=== PATIENT | female | born 1965 | race Caucasian/White ===

== ENCOUNTER 2019-06-08 13:27 | Outpatient (CLI) | payer MEDICARE, SELFPAY ==
--- NOTE | ~2019-06-08 | US_ITS ---
EXAMINATION: US pelvic complete w TV EXAM DATE: 06/08/2019 14:27 INDICATION: Postmenopausal bleeding. TECHNIQUE: Pelvic transabdominal and transvaginal sonogram was performed. There are multiple graysca le and Doppler images available for interpretation. Comparison is made to prior examination from 04/14. FINDINGS: Uterus measures 7.9 x 5.6 x 8.0 cm, with fibroid(s). 2 focal fibroids were specifically id entified at 5.0 x 4.1 x 4.0 cm and 3.0 x 2.9 x 2.6 cm. Endometrial stripe measures 3 mm, within katlyn l limits. There is no free pelvic fluid. Right adnexa: The ovary is not identified. There is no adnexal mass. Left adnexa: The ovary is not identified. There is no adnexal mass. IMPRESSION: 1. At least 2 sizable fibroids. Reviewed, dictated and finalized at location B. WRITER
== END 2019-06-08 13:28 | disposition home or self-care (01) ==
PROVIDERS: PCP Family Medicine; Visit Provider Nurse Practitioner
DX: N95.0 Postmenopausal bleeding (principal); D25.9 Leiomyoma of uterus, unspecified
CPT/HCPCS: 76830; 76856

== ENCOUNTER 2020-01-26 00:42 | Outpatient (CLI) | payer MEDICARE, SELFPAY ==
[2020-01-26 18:37] LABS: SARS-CoV-2 RNA PCR Negative
== END 2020-01-26 00:43 | disposition home or self-care (01) ==
LOC: ANHCOVIDDT 00:42
PROVIDERS: PCP Family Medicine; Visit Provider Internal Medicine Gastroenterology
DX: Z01.812 Encounter for preprocedural laboratory examination (principal); Z20.828 Contact with and (suspected) exposure to other viral communicable diseases
CPT/HCPCS: 87635; C9803; U0003

== ENCOUNTER 2020-01-29 01:07 | Day surgery (SDC) | payer MEDICARE, SELFPAY ==
[2020-01-22 09:04] VITALS: BMI 29.2
[2020-01-29 06:49] VITALS: BP 113/74; PULSE 85; RESP 18; TEMP 36.8; O2SAT 97; BMI 29.5
[2020-01-29] MEDS: LACTATED RINGERS 1,000 ML 150 ML IV CONT (07:08)
--- NOTE | 2020-01-29 07:28 | WPDANESEPPF ---
Anes - Initial Pre Proc Eval Procedure: Operation Date: 01/29/20 08:00 Proposed Procedures p Esophagogastroduodenoscopy - Ace Mata MD Date/Time: 01/29/20 07:28 Surgeon: Ace Mata MD Pre Op Diagnosis: Nausea Patient Data Age: 54 Gender: F Height: 5 ft 3 in Weight: 75.6 kg Last Vital Signs Temp 98.2 F 01/29/20 06:49 Pulse 85 01/29/20 06:49 Resp 18 01/29/20 06:49 BP 113/74 01/29/20 06:49 Pulse Ox 97 01/29/20 06:49 Allergies Allergy/AdvReac Type Severity Reaction Status Date / Time buspirone Allergy Intermediate ANXIETY, Verified 01/29/20 06:47 HEAD CRAWLING,ACID REFLUX cefuroxime Allergy Intermediate NAUSEA,DIZZ Verified 01/29/20 06:47 INESS,TINGL ING hydrocodone Allergy Intermediate HEART Verified 01/29/20 06:47 PALPATATIONS,DIZZINESS,NAUSEA,HALLUCINATIONS meloxicam Allergy Intermediate SEVERE Verified 01/29/20 06:47 MIGRAINE,VOMITTING baclofen Allergy Mild MADE ACID Verified 01/29/20 06:47 REFLUX WORSE Cephalosporins Allergy Mild Unknown Verified 01/29/20 06:47 escitalopram Allergy Mild TREMORS Verified 01/29/20 06:47 AND INSOMIA nortriptyline Allergy Mild CAUSED Verified 01/29/20 06:47 SEVERE ACID REFLUX, CAN'T FUNCTION rabeprazole Allergy Mild Other Verified 01/29/20 06:47 tetracycline Allergy Mild MIGRAINE Verified 01/29/20 06:47 topiramate Allergy Mild HEART Verified 01/29/20 06:47 PALPATATIONS, ANXIETY tramadol Allergy Mild HEADACHE,NAUSEA,DRY Verified 01/29/20 06:47 MOUTH venlafaxine Allergy Mild Unknown Verified 01/29/20 06:47 modafinil Allergy Unknown ANXIETY,SCALP Verified 01/29/20 06:47 CRAWLING nitrofurantoin Allergy Unknown SEVERE Verified 01/29/20 06:47 HEADACHE, NAUSEA BUPROPION HCL Allergy Intermediate HEART Uncoded 01/29/20 06:47 PALPATAIONS,MIGRAINES,TINNITIS CYMBALTA Allergy Intermediate DRY Uncoded 01/29/20 06:47 HEAVES,DIZZINESS,CHEST APINS LYRICA Allergy Intermediate LOWERS Uncoded 01/29/20 06:47 BLOOD PLATELETS DARVOCET Allergy Unknown NAUSEA AND Uncoded 01/29/20 06:47 SEVERE HEADACHE RABEPRAZOLE SODIUM Allergy Unknown DOES NOT Uncoded 01/29/20 06:47 HELP ACID REFLUX SYMPTOMS VENLAFAXINE HCL Allergy Unknown SEVERE Uncoded 01/29/20 06:47 ANXIETY Home Medications Medication Instructions Recorded Confirmed Type esomeprazole magnesium 40 mg 40 mg PO DAILY #90 cap 08/27/19 01/29/20 Rx capsule,delayed release gabapentin 600 mg tablet 600 mg PO TID 11/29/19 01/22/20 History meclizine 25 mg tablet 25 mg PO BID PRN #30 tablet 11/29/19 01/29/20 Rx tizanidine 2 mg capsule 2 mg PO TID PRN 11/29/19 01/22/20 History Patient hx anesthesia problems: none Family hx anesthesia problems: none PMFSH Past Medical History Medical History (Updated 01/29/20 @ 07:29 by Rupesh Cuello MD) Colon, diverticulosis GERD (gastroesophageal reflux disease) Multiple sclerosis relapsing; takes meds at present time Nausea Upper abdominal pain Social History Social History Smoking status: Never smoker Alcohol intake: current Living arrangements: with family Gladis Akbar Final PreProcedure Day of Procedure 01/29/20 07:28 Patient weight: normal Heart: regular rate and rhythm Lungs: clear to auscultation Airway: Mallampati scale class II Neurological: alert and oriented Last oral intake: >/= 8 hours ASA classification: II Emergent: no Anesthetic plan: proceed Anesthesia type and monitoring: general GIVS and standard monitoring Informed Consent: The patient's anesthetic plan and its attendant risks and benefits were discussed with the patient/family/POA. Questions were solicited and answers provided to the satisfaction of the patient/family/POA.
--- NOTE | 2020-01-29 07:56 | PM.HPGS ---
History of Present Illness History of Present Illness Consent: Risks, benefits, and alternatives have been discussed and questions answered. Patient agrees to proceed with procedure. Chief complaint: Nausea Narrative: Trinity Treviño is a 54 year old female with intermittent nausea and discomfort, on nexium for several years. Review of Systems Constitutional: Constitutional: Denies headache(s) and Denies weakness Eyes: Eyes: Denies blurry vision ENT: Reports Normal hearing present, Denies headache(s) and Denies neck pain Cardiovascular: Cardiovascular: Denies chest pain and Denies dyspnea Respiratory: Respiratory: Denies dyspnea Gastrointestinal: Gastrointestinal: Reports no additional gastrointestinal complaints Genitourinary: Genitourinary: Denies dysuria Musculoskeletal: Musculoskeletal: Denies neck pain Integumentary/Breasts: Skin/Breast: Denies dry skin Neurologic: Reports Normal hearing present, Denies headache(s) and Denies weakness Psychiatric: Psychiatric: Denies anxiety Endocrine: Endocrine: Denies change in body appearance Hematologic/Lymphatic: Hematologic/Lymphatic: Denies easy bleeding Allergic/Immunologic: Allergic/Immunologic: Denies urticaria PMFSH Past Medical History Medical History (Updated 01/29/20 @ 07:29 by Rupesh Cuello MD) Colon, diverticulosis GERD (gastroesophageal reflux disease) Multiple sclerosis relapsing; takes meds at present time Nausea Upper abdominal pain Social History Social History Smoking status: Never smoker Alcohol intake: current Living arrangements: with family Meds Home Medications and Allergies Home Medications Medication Instructions Recorded Confirmed Type esomeprazole magnesium 40 mg 40 mg PO DAILY #90 cap 08/27/19 01/29/20 Rx capsule,delayed release gabapentin 600 mg tablet 600 mg PO TID 11/29/19 01/22/20 History meclizine 25 mg tablet 25 mg PO BID PRN #30 tablet 11/29/19 01/29/20 Rx tizanidine 2 mg capsule 2 mg PO TID PRN 11/29/19 01/22/20 History Allergies Allergy/AdvReac Type Severity Reaction Status Date / Time buspirone Allergy Intermediate ANXIETY, Verified 01/29/20 06:47 HEAD CRAWLING,ACID REFLUX cefuroxime Allergy Intermediate NAUSEA,DIZZ Verified 01/29/20 06:47 INESS,TINGL ING hydrocodone Allergy Intermediate HEART Verified 01/29/20 06:47 PALPATATIONS,DIZZINESS,NAUSEA,HALLUCINATIONS meloxicam Allergy Intermediate SEVERE Verified 01/29/20 06:47 MIGRAINE,VOMITTING baclofen Allergy Mild MADE ACID Verified 01/29/20 06:47 REFLUX WORSE Cephalosporins Allergy Mild Unknown Verified 01/29/20 06:47 escitalopram Allergy Mild TREMORS Verified 01/29/20 06:47 AND INSOMIA nortriptyline Allergy Mild CAUSED Verified 01/29/20 06:47 SEVERE ACID REFLUX, CAN'T FUNCTION rabeprazole Allergy Mild Other Verified 01/29/20 06:47 tetracycline Allergy Mild MIGRAINE Verified 01/29/20 06:47 topiramate Allergy Mild HEART Verified 01/29/20 06:47 PALPATATIONS, ANXIETY tramadol Allergy Mild HEADACHE,NAUSEA,DRY Verified 01/29/20 06:47 MOUTH venlafaxine Allergy Mild Unknown Verified 01/29/20 06:47 modafinil Allergy Unknown ANXIETY,SCALP Verified 01/29/20 06:47 CRAWLING nitrofurantoin Allergy Unknown SEVERE Verified 01/29/20 06:47 HEADACHE, NAUSEA BUPROPION HCL Allergy Intermediate HEART Uncoded 01/29/20 06:47 PALPATAIONS,MIGRAINES,TINNITIS CYMBALTA Allergy Intermediate DRY Uncoded 01/29/20 06:47 HEAVES,DIZZINESS,CHEST APINS LYRICA Allergy Intermediate LOWERS Uncoded 01/29/20 06:47 BLOOD PLATELETS DARVOCET Allergy Unknown NAUSEA AND Uncoded 01/29/20 06:47 SEVERE HEADACHE RABEPRAZOLE SODIUM Allergy Unknown DOES NOT Uncoded 01/29/20 06:47 HELP ACID REFLUX SYMPTOMS VENLAFAXINE HCL Allergy Unknown SEVERE Uncoded 01/29/20 06:47 ANXIETY
[2020-01-29 08:10] VITALS: BP 113/55; PULSE 78; RESP 15; O2SAT 97
[2020-01-29 08:20] VITALS: BP 106/68; PULSE 69; RESP 16; O2SAT 98
[2020-01-29 08:30] VITALS: BP 119/61; PULSE 62; RESP 19; O2SAT 98
== END 2020-01-29 08:57 | disposition home or self-care (01) ==
PROVIDERS: PCP Family Medicine; Visit Provider Internal Medicine Gastroenterology
PROC: 0DJ08ZZ Inspection of Upper Intestinal Tract, Via Natural or Artificial Opening Endoscopic (ICD-10-PCS; CPT 43235; principal; 2020-01-29 08:00)
DX: K29.50 Unspecified chronic gastritis without bleeding (principal); K44.9 Diaphragmatic hernia without obstruction or gangrene; K21.9 Gastro-esophageal reflux disease without esophagitis; G35 Multiple sclerosis
CPT/HCPCS: 43239; 88305; J2704; J7120

== ENCOUNTER 2020-09-24 08:30 | Outpatient (RCR) | payer MEDICARE, SELFPAY ==
--- NOTE | 2020-08-22 09:49 | PTOPEVAL ---
PHYSICAL THERAPY EVALUATION Thank you for referring Trinity Treviño to [facility].? Trinity was evaluated for the dx of right frozen shoulder. The patient is scheduled to be seen for therapy? 2 x/week for 5 weeks. Please review, sign, date and return this plan of care JAMIE. I agree with and certify that the following plan of care is medically necessary. Referring Physician Date Attending Provider: Jayant Bearden MD *PT Outpatient Evaluation Start: 08/22/20 08:17 Freq: Status: Active Protocol: Document 08/22/20 08:17 MLV (Rec: 08/22/20 09:36 MLV [id number]) Therapy Assessment Status Assessment Status Evaluation Evaluation Information Problem Diagnosis right frozen shoulder Onset summer Cause none Additional Evaluation Detail Started having soreness last summer, working in the yard a lot, then used the computer a lot in the fall and the shoulder got worse. Pt did not see MD until recently due to COVID fear- pt has MS and can't have vaccine yet-fears getting ill. Pt does not work- on disability due to the MS. The patient does her housework, cooking, yardwork and walks for exercise. Pt does not go out unless needed. The patient reports a decrease in ability to reach, do ADL's, work in her yard and must compensate movement due to right shoulder and scapular tightness/pain. The patient also reports not sleeping well due to shoulder pain. Diagnostic Tests X-Rays For This Problem Yes: structure ok at right shoulder Pain Assessment Timing of Pain Assessment Timing of Pain Assessment Assessment Pain Scale Pain Scale Used Numeric (1 - 10) Self Report Pain Assessment Right Shoulder(s) Reported Pain Level 4 Pain Description Aching Pain Radiation Right Arm Pain Frequency Acute,Chronic Greatest Pain Intensity 10 Pain Aggravating Factors Palpation Other Pain Aggravating Factors reaching, lifting, ADL's Pain Behaviors Guarding Pain Score Pain Score 4: Self Report Interventions Used Interventions Used By Clinicians
--- NOTE | 2020-09-01 09:24 | PCPTNOTE ---
Patient called & cancelled scheduled appointment this date due to not feeling well.
--- NOTE | 2020-09-24 09:27 | PTOPEVAL ---
PHYSICAL THERAPY RE-EVALUATION Thank you for referring Trinity Treviño to [facility].? Trinity continues to progress and goals are being met. The patient is scheduled to be seen for therapy?1 x/week for 4 weeks (less frequent due to cost issues). Please review, sign, date and return this plan of care JAMIE. I agree with and certify that the following plan of care is medically necessary. Referring Physician Date Attending Provider: Jayant Bearden MD *PT Outpatient Re-Evaluation Start: 08/22/20 08:17 Freq: Status: Active Protocol: Document 09/24/20 08:33 MLV (Rec: 09/24/20 09:23 MLV [id number]) Therapy Assessment Status Assessment Status Re-evaluation Evaluation Information Problem Diagnosis right frozen shoulder Onset summer Cause none Additional Evaluation Detail Pt reports improving and is sleeping better but the weather affects current comfort level which is typical for her MS symptoms. Pt feels she is about 50% better with shoulder motions for daily activities. Pt no longer has sharp pains with quick motions but feels she needs more therapy to get maximal movement at shoulder. Patient reports having increased neck tightness for last 2 weeks. Pain Assessment Timing of Pain Assessment Timing of Pain Assessment Assessment Pain Scale Pain Scale Used Numeric (1 - 10) Self Report Pain Assessment Right Neck Reported Pain Level 3 Pain Description Tightness Pain Frequency Acute Other Pain Description after exercises a 6 out of 10 Pain Aggravating Factors Exercise/Activity Pain Behaviors Guarding Right Shoulder(s) Reported Pain Level 2 Pain Description Aching Other Pain Description 4 with reach motions Pain Score Pain Score 2,3: Self Report Interventions Used Interventions Used By Clinicians Exercise,Heat,Manual Therapy Techniques Pain Relief Interventions Used By Exercise,Heat,Position Change, Patient Massage Modalities Cervical and Lumbar ROM Cervical ROM Cervical Lateral Flexion Right (0-50) 45 Query Text:Active in Degrees Cervical Lateral Flexion Left (0-50) 36 Query Text:Active in Degrees Upper Extremity Range of Motion General Upper Extremity Range of Motion Gross Upper Extremity Range of Motion left shoulder active motio
--- NOTE | 2020-10-03 10:11 | PCPTNOTE ---
Addendum entered by Carolynn Casarez, PT 10/03/20 10:43: Patient returned a call and reports cancelling appts. due to MS flare up. Plans to see her MD then decide if further therapy is needed. Will call and reschedule if indicated by MD. PT to await return call from patient for DC/continue plans. MV-PT Original Note: PHYSICAL THERAPY DISCHARGE Attending Provider: Jayant Bearden MD Patient:Trinity Treviño Date of :1965 Patient called to cancel all further therapy appts and plans to follow up with her MD; therefore she will be discharged at this time. Patient did give a reason for cancelling. Patient?s initial visit was on 08/22/2020 08:15 and she had a total of 10 visits. The goals have been partially met. Thank you for referring this patient to [facility]. Please review, sign, date and return this discharge summary JAMIE. I have been updated about the patient's current status and I agree with discharge from the above service at this time. Referring Physician Date
== END 2020-10-07 09:06 | disposition home or self-care (01) ==
LOC: ANHPT 08:30
PROVIDERS: PCP Family Medicine; Visit Provider Orthopaedic Surgery
DX: M75.00 Adhesive capsulitis of unspecified shoulder (principal)
CPT/HCPCS: 97014; 97110; 97140; 97162; G0283

== ENCOUNTER 2021-03-12 09:46 | Outpatient (CLI) | payer MEDICARE, SELFPAY ==
--- NOTE | ~2021-03-12 | MR_ITS ---
EXAMINATION: MR brain/brain stem wo/w con EXAM DATE: 03/12/2021 11:05 INDICATION: Multiple sclerosis. TECHNIQUE: Magnetic resonance imaging (MRI) of the brain/brain stem obtained without contrast. Sagit sukumar T1, axial diffusion, gradient echo (T2*), T1, T2, FLAIR sequences obtained. Patient was then inj ected with 14 cc intravenous Multihance contrast. Axial and coronal postcontrast T1 weighted sequence s obtained. Comparison is made to prior examination from 01/30/2019. FINDINGS: There are approximately 15-20 punctate periventricular T2/flair signal hyperintensity is un changed. Several these are periventricular, may involve margin of the corpus callosum. No posterior f jolene signal abnormalities or significant interval change. No enhancing regions. There are no areas of restricted diffusion to suggest acute infarction. There is no acute hemorrhage seen on the T2*, a hemosiderin sensitive sequence. No intraparenchymal brain mass. The ventricles a re normal in size. There are no extra-axial collections. Flow voids are seen in the cerebral arteri es on the T2-weighted sequences consistent with their expected patency. The orbits are unremarkable. Soft tissue is unremarkable. There are no areas of abnormal enhancement on the postcontrast image s. IMPRESSION: 1. Stable scattered small white matter signal abnormalities, possible multiple sclerosis. 2. No interval change or acute findings. Reviewed, dictated and finalized at location A.
[2021-03-12 10:45] LABS: Estimated Glomerular Filt Rate > 60
== END 2021-03-12 09:47 | disposition home or self-care (01) ==
PROVIDERS: PCP Family Medicine; Visit Provider Psychiatry & Neurology Neurology
DX: G35 Multiple sclerosis (principal)
CPT/HCPCS: 70553; A9577

== ENCOUNTER 2021-06-22 13:58 | Outpatient (CLI) | payer MEDICARE, SELFPAY ==
--- NOTE | 2021-06-22 14:23 | ECG_ITS ---
Measurements Intervals [place] Rate: 94 P: 63 SD: 168 QRS: 57 QRSD: 79 T: 37 QT: 335 QTc: 421 Interpretive Statements SINUS RHYTHM POSSIBLE LEFT ATRIAL ENLARGEMENT INCOMPLETE RIGHT BUNDLE BRANCH BLOCK MINIMAL Q WAVES- ANTEROLATERAL LEADS BORDERLINE ST-T WAVE ABNORMALITY- ANT/INF LEADS BASELINE ARTIFACT- V6 BORDERLINE ECG Electronically Signed On 06-22-2021 15:16:57 MESSENGER FLOORPERSON by Melvin Landon D.O.
== END 2021-06-22 13:59 | disposition home or self-care (01) ==
LOC: ANHIMG 14:04
PROVIDERS: PCP Family Medicine; Visit Provider Physician Assistant Medical
DX: R00.0 Tachycardia, unspecified (principal); R42 Dizziness and giddiness; R07.89 Other chest pain
CPT/HCPCS: 93005

== ENCOUNTER 2021-07-30 12:36 | Outpatient (CLI) | payer MEDICARE, SELFPAY ==
--- NOTE | ~2021-07-30 | US_ITS ---
EXAMINATION: US venous doppler [facility] DATE: 07/30/2021 13:55 INDICATION: Asymptomatic varicose veins TECHNIQUE: Sarmiento scale images without and with compression and Doppler images of the bilateral lower e xtremity veins were obtained. COMPARISON: 11/19/2014 FINDINGS: The right common femoral vein, profunda femoral vein, femoral vein, popliteal vein, peroneal trunk, p osterior tibial veins, and greater saphenous vein are patent. The left common femoral vein, profunda femoral vein, femoral vein, popliteal vein, peroneal trunk, po sterior tibial veins, and greater saphenous vein are patent. IMPRESSION: 1. Patent bilateral lower extremity veins. No evidence of deep venous thrombosis. Reviewed, dictated and finalized at location B. IMPRESSION: 1. Patent bilateral lower extremity veins. No evidence of deep venous thrombosi s.
== END 2021-07-30 12:37 | disposition home or self-care (01) ==
PROVIDERS: PCP Family Medicine; Visit Provider Physician Assistant Medical
DX: R79.89 Other specified abnormal findings of blood chemistry (principal)
CPT/HCPCS: 93970

== ENCOUNTER 2021-12-15 10:48 | Outpatient (CLI) | payer MEDICARE, SELFPAY ==
--- NOTE | ~2021-12-15 | US_ITS ---
EXAMINATION: US pelvic complete w TV DATE: 12/15/2021 11:45 INDICATION: Postmenopausal bleeding Comparison:Ultrasound dated 06/08/2019 TECHNIQUE: Multiple transabdominal and endovaginal sonographic images of the pelvis performed. FINDINGS: The uterus measures 8 x 5.4 x 6.2 cm. The endometrial complex is not well visualized. There are uterine fibroids, largest measuring 4.6 cm. The ovaries are not visualized. There is no free fluid in the pelvis. There are no abnormal masses seen on either side. IMPRESSION: 1. Uterine fibroids. Endometrium not delineated due to fibroid changes. Reviewed, dictated and finalized at location A.
== END 2021-12-15 10:49 | disposition home or self-care (01) ==
LOC: ANHIMG 10:51
PROVIDERS: PCP Family Medicine; Visit Provider Obstetrics & Gynecology Gynecology
DX: N95.0 Postmenopausal bleeding (principal); D25.9 Leiomyoma of uterus, unspecified
CPT/HCPCS: 76830; 76856

== ENCOUNTER 2022-02-19 09:01 | Outpatient (CLI) | payer MEDICARE, SELFPAY ==
--- NOTE | ~2022-02-19 | DEXA_ITS ---
Bone Density Report Name: NORTH VELEZ Age: 56 Sex: Female Ethnicity: White Date of : 1965 Indication: postmenopausal; screening for osteoporosis; height loss; inflammatory bowel disease; prior fracture; Referring Provider: RENETTA, SAMANTHA Study: Bone densitometry was performed. Exam Date: February 19, 2022 Accession number: [id number] Bone Density: Region BMD T-score Z-score Classification AP Spine(L1-L4) 0.948 -0.9 0.3 Normal Femoral Neck (Left) 0.814 -0.3 0.8 Normal Total Hip (Left) 0.984 0.3 1.1 Normal Femoral Neck (Right) 0.837 -0.1 1.0 Normal Total Hip (Right) 0.992 0.4 1.2 Normal Total Hip Mean 0.988 0.4 1.2 Normal World Health Organization criteria for BMD impression classify patients as: Normal (T-score at or above -1.0), Osteopenia (T-score between -1.0 and -2.5), or Osteoporosis (T-score at or below -2.5). 10-year Fracture Risk: FRAX not reported because: All T-scores for Spine Total, Hip Total, Femoral Neck at or above -1.0 Previous Exams: Region Exam Age BMD T-score BMD Change BMD Change Date g/cm2 vs Baseline vs Previous AP Spine (L1-L4) 02/19/2022 56 0.948 -0.9 -0.045 (-4.6%) -0.045 (-4.6%) 05/25/2018 52 0.993 -0.5 Total Hip(Left) 02/19/2022 56 0.984 0.3 -0.063 (-6.0%) -0.063 (-6.0%) 05/25/2018 52 1.047 0.9 Total Hip(Right) 02/19/2022 56 0.992 0.4 0.006 (0.6%) 0.006 (0.6%) 05/25/2018 52 0.986 0.4 *Denotes significance at 95% confidence level, LSC for AP Spine = 0.022 g/cm2, LSC for Total Hip = 0.027 g/cm2 Clinical Information Provided by Patient: Has had a low trauma fracture Has the following medical conditions: Inflammatory bowel diseases Patient maximum height was 64 Menopause Age: 50 No regular weight bearing exercise Drinks caffeinated beverages Onset of menses at age 13 Number of children 0 Missed period for more than 6 months in a row Impression: The patient has normal bone mass. The patient has risk factors, including: previous fracture. The BMD for the AP Spine (L1-L4) decreased, changing by -4.6% since the last DXA exam. The BMD for the Total Hip(Left) decreased, changing by -6.0% since the last DXA exam. Discussion: BONE DENSITY IS ABOVE THE MINIMUM DESIRABLE LEVEL AT ALL SKELETAL SITES TESTED. This patient?s bone mineral density is above the minimum desirable level (T-score -1.0 or better) at all sites measured. The patient should follow a healthful lifes
== END 2022-02-19 09:02 | disposition home or self-care (01) ==
PROVIDERS: PCP Family Medicine; Visit Provider Nurse Practitioner
DX: Z78.0 Asymptomatic menopausal state (principal); M85.851 Other specified disorders of bone density and structure, right thigh
CPT/HCPCS: 77080

== ENCOUNTER 2023-04-04 15:29 | Outpatient (CLI) | payer MEDICARE, SELFPAY ==
--- NOTE | ~2023-04-04 | MR_ITS ---
EXAMINATION: MR brain/brain stem wo/w con DATE: 04/04/2023 16:31 INDICATION: Multiple sclerosis. TECHNIQUE: Magnetic resonance imaging (MRI) of the brain and brainstem was performed without and with 14 mL MultiHance intravenous contrast. COMPARISON: Brain MRI 03/12/2021 FINDINGS: There are greater than 10 total lesions of increased T2-weighted signal intensity in the br ain. Of these lesions, approximately multiple are periventricular, multiple are juxtacortical, and no ne are infratentorial. None of the lesions enhance. There is no intracranial hemorrhage or acute isch emic infarct. The ventricles are normal symmetric. The paranasal sinuses are clear. There is normal. The mastoid air cells are normal. IMPRESSION: 1. Stable mild cerebral white matter disease, which may be chronic small vessel ischemic disease and/ or multiple sclerosis. Reviewed, dictated and finalized at location A. SERVICEMAN IMPRESSION: 1. Stable mild cerebral white matter disease, which may be chronic small vessel ischemic disease and/or multiple sclerosis.
== END 2023-04-04 15:30 | disposition home or self-care (01) ==
PROVIDERS: PCP Family Medicine; Visit Provider Psychiatry & Neurology Neurology
DX: G35 Multiple sclerosis (principal); R90.82 White matter disease, unspecified
CPT/HCPCS: 70553; A9577

== ENCOUNTER 2023-08-09 10:12 | Outpatient (CLI) | payer MEDICARE, SELFPAY ==
--- NOTE | ~2023-08-09 | XR_ITS ---
Lumbosacral Spine: AP and lateral views Clinical History: Pain Findings: The normal lordotic curve is maintained. The vertebral bodies and posterior elements are i ntact. The intervertebral disc spaces are preserved. The sacroiliac joints are normally outlined. Impression: No significant abnormality. Reviewed, dictated and finalized at [facility]. Impression: No significant abnormality.
--- NOTE | ~2023-08-09 | XR_ITS ---
Right Knee Technique: AP and lateral views were obtained. Clinical History: Pain Findings: No fracture or dislocation is seen. Osseous alignment is anatomic. Joint spaces are preserv ed without degenerative or erosive change. Soft tissues are unremarkable. No joint effusion is seen. Impression: Unremarkable right knee radiographs. Reviewed, dictated and finalized at location . Impression: Unremarkable right knee radiographs.
--- NOTE | ~2023-08-09 | XR_ITS ---
AP view of the pelvis and AP and lateral views of the right hip Clinical history: Pain Findings: No acute fracture or dislocation is seen. Osseous alignment is anatomic. Bilateral hip and SI joint spaces are preserved. Soft tissues are unremarkable. Impression: No significant abnormality is seen. Reviewed, dictated and finalized at location . Impression: No significant abnormality is seen.
== END 2023-08-09 10:13 | disposition home or self-care (01) ==
PROVIDERS: PCP Family Medicine; Visit Provider Physician Assistant Medical
DX: M25.551 Pain in right hip (principal); M25.561 Pain in right knee; M54.50 Low back pain, unspecified; G89.29 Other chronic pain
CPT/HCPCS: 72100; 73502; 73560

== ENCOUNTER 2023-10-13 13:18 | Outpatient (CLI) | payer MEDICARE, SELFPAY ==
--- NOTE | ~2023-10-13 | XR_ITS ---
Right ankle Technique: AP, oblique, and lateral views were obtained. Clinical History: Pain Findings: No acute fracture or dislocation is seen. Osseous alignment is anatomic. Ankle mortise and other visualized joint spaces demonstrate anatomic alignment. There is minimal degenerative change of the tibiotalar joint. Soft tissues are otherwise unremarkable. Impression: Minimal degenerative change of the tibiotalar joint. Reviewed, dictated and finalized at location . Impression: Minimal degenerative change of the tibiotalar joint.
== END 2023-10-13 13:19 | disposition home or self-care (01) ==
PROVIDERS: PCP Family Medicine; Visit Provider Nurse Practitioner Family
DX: M25.579 Pain in unspecified ankle and joints of unspecified foot (principal)
CPT/HCPCS: 73610

== ENCOUNTER 2023-10-26 09:00 | Outpatient (RCR) | payer MEDICARE, SELFPAY ==
--- NOTE | 2023-09-06 09:18 | OPREHPOC ---
Outpatient Therapy Plan of Care This is a Multidisciplinary Plan of Care that may contain components documented by all disciplines (PT, OT, and ST.) PT Problem 1 PT Problem #1 Knowledge Deficit PT Goal 1 Goal *indep with HEP * correct posture with exercises Target Visit 8 PT Problem 2 PT Problem #2 Pain PT Goal 1 Goal 1* pain rating at worst of 6/10 2* Oswestry self assessment rating of 20% limitation in activity 3* pt report with sleeping, awaken 3x/night due to pain 4* monitor R knee and ankle pain as increase activity level Target Visit 8 PT Problem 3 PT Problem #3 Impaired Flexibility PT Goal 1 Goal increase flexibility of hips, to improve position of spine and hips hamstring length with supine SLR 1* R 75' 2* L 75' piriformis stretch in supine report NO stretch in hip 3* R 4* L Target Visit 8 PT Problem 4 PT Problem #4 Impaired Strength PT Goal 1 Goal increase trunk and hip strength, to improve mobility skills and stability to spine: 1* hip extension strength with prone exercises x 20 reps single leg standing 10 seconds with good stability: 2* R 3* L 4* 2 minute walking test distance of 500' and NO pain increase Target Visit 8
--- NOTE | 2023-09-06 09:18 | PTOPEVAL1 ---
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; recent MRI of R knee and hip/SIJ were negative Activity: do not work outside of home;indep with light home and self care activities--have figured out how to take care of herself since MS diagnosis ; does not do any regular fitness exercises-- walking her usual fitness; have done some fitness exercises few months ago; have had MS flare ups, where she has had to be in a w/c; GOAL: figure out what is going on with the hip and knee; see if need an MRI of them or get them better; Reported Pain Level Pain Score Self Report Additional Pain Score Comments pain range in the past week 1-10/10; aches in R hip and knee; both sides of low back, into both hips R >L; anterior groin, anterior & med knee to R ankle tight and tuniquet around hip, knee and ankle; increase pain: going down stairs in R knee, end of day, when still and not move around; lie down and elevate legs; decrease pain: tylenol, ibuprofen; heating pad over back or knee R; have compression sleeve for R knee- use PRN for increased activity with sleeping, awaken due to pain ~ 6+ x/night , change positions to get comfortable; Assessment PT Clinical Summary Trinity has the diagnosis o
--- NOTE | 2023-09-29 10:47 | PCPTNOTE ---
Patient cancelled secondary to ill.
--- NOTE | 2023-10-04 13:29 | PTOPPROG ---
Assessment and note entered by Annita Ayers, PT Progress Information Assessment Status Progress Diagnosis low back pain,other chronic pain, pain R knee, pain R hip Onset Mar 2023 Subjective Information knee still popping out of place and hurts; the exercises and stretching are helping, but still have the pain in knee and back; therapy is helping, but want to see if dr will do more testing; want to continue therapy to help get better. ZAPATA: range in the past week 4-02/15- R knee, back and ankle pain; knee pops and hurts increase pain: unable to state ---walking and activity varies day/day if bothers her or not; stormy, bad weather decrease pain: change positions, walk around, stretches, sit on ball; stim and heat with sleeping, reports awaken 3-4 x/night due to pain; does not have an electrical stim unit at home, discussed obtaining one for home use; Assessment PT Clinical Summary Trinity has received 7 PT sessions. Compared to the initial evaluation: pain from -02/15 to -02/15; continues to have pain in back, R knee and R ankle; self assessment Oswestry rating from 30 to 32% limitation in activity level reported sleeping tolerance has improved from awakening 6 times to 3-4x/ night due to pain; increase hamstring flexibility of R and L; 2 minute walking testing distance from 460' to 510', with reported pain increase; with walking, no longer has a limp on R LE; education for HEP and posture; modalities have provided her with some pain relief. The goals were partially met. Continue PT. She is going to call for a follow up appointment-- -has some pain relief but continues to have pain. She may require additional testing or imaging. Plan of Care Interventions Electrical Stimulation,Hot Pack/Cold Pack,Manual Therapy,Mechanical Traction,Neuro Re-education, Patient Education,Therapeutic Activities, Therapeutic Exercise,Ultrasound,Other Other Interventions taping, IASMARIE PT Services Indicated Yes Treatment Frequency and 2x/wk for 6 more visits
--- NOTE | 2023-10-26 09:52 | PTOPDC ---
Assessment and note entered by Annita Ayers, PT Discharge Report Assessment Status Discharge Diagnosis low back pain,other chronic pain, pain R knee, pain R hip Onset Mar 2023 Subjective Information back is better, but still hurting; have figured out what causes it and what helps it; want to see dr and try to get MRI of back to see what is going on. Agree to discharge PT. Will continue to do the exercises. Reported Pain Level Pain Score Self Report Additional Pain Score Comments pain range in the past week 2-10/10; sharp pains in back, around to sides of hips R more than L - few times a week, stops me in tracks; pressure in low back and locks up back pain increase: sitting more than 30 minutes; awaken from sleeping 5x/night- few of them have to get up out of bed and walk around; weather pain decrease: tylenol, ibuprofen, change position, walk around; do not yet have a home stim unit; discussed type of unit, settings and pad placement. R knee continues to feel out of place and R ankle sometimes get sharp pains Assessment PT Clinical Summary Trinity has received 13 PT sessions. Compared to the last reevaluation: pain rating from 4-10/10 to 2-10/10, in low back and hips; also have pain in R knee and ankle--not radicular from back/ arthritis in knee and ankle; self assessment Oswestry rating from 32 to 38% limitation in activity; with sleeping awaken due to pain from 3-4 to 5x/night; increase flexibility of R hamstring and no longer painful; R piriformis is tighter than L with supine stretch; increase strength of trunk and hips, but single leg standing is the same as last assessment; indep with HEP and good awareness of pain management techniques. The goals were partially met. Discharge PT services. She is to continue with her HEP. Plan of Care PT Services Indicated No
== END 2023-10-26 10:48 | disposition home or self-care (01) ==
LOC: ANHPT 09:00
PROVIDERS: PCP Family Medicine; Visit Provider Nurse Practitioner Family
DX: M54.50 Low back pain, unspecified (principal); M25.561 Pain in right knee; M25.551 Pain in right hip; G89.29 Other chronic pain
CPT/HCPCS: 97014; 97110; 97140; 97162; 97530; G0283

== ENCOUNTER 2023-11-09 11:03 | Outpatient (CLI) | payer MEDICARE, SELFPAY ==
--- NOTE | ~2023-11-09 | XR_ITS ---
Left ankle Technique: AP and lateral views were obtained. Clinical History: Joint pain Findings: No acute fracture or dislocation is seen. Osseous alignment is anatomic. Ankle mortise and other visualized joint spaces are preserved. Soft tissues are otherwise unremarkable. Impression: Unremarkable left ankle. Reviewed, dictated and finalized at location . Impression: Unremarkable left ankle.
--- NOTE | ~2023-11-09 | XR_ITS ---
EXAMINATION: XR wrist LT 2V, XR hand LT 2V, XR hand RT 2V, XR wrist RT 2V DATE: 11/09/2023 11:42 INDICATION: Possible rheumatoid arthritis with multiple joint pain. TECHNIQUE: 1. Posteroanterior and lateral views of the left wrist were obtained. 2. Dorsal palmar and lateral views of the left hand were obtained. 3. Posteroanterior and lateral views of the right wrist were obtained. 4. Dorsal palmar and lateral views of the right hand were obtained. COMPARISON: None. FINDINGS: Alignment of the bilateral hands and wrists is normal. No fracture identified. Minimal to mild polya rticular osteoarthritis at several of the bilateral interphalangeal joints with distal predominance. No erosions to suggest an inflammatory arthritis such as rheumatoid. No focal soft tissue swelling. IMPRESSION: 1. 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 Reviewed, dictated and finalized at location B. IMPRESSION: 1. Minimal to mild polyarticular osteoarthritis at the bilateral interphalangea l joints with distal predominance. IMPRESSION: 1. Minimal to mild polyarticular osteoarthritis at the bilateral interphalangea l joints with distal predominance. IMPRESSION: 1. Minimal to mild polyarticular osteoarthritis at the bilateral interphalangea l joints with distal predominance.
--- NOTE | ~2023-11-09 | XR_ITS ---
Left foot Technique: AP and lateral views were obtained. Clinical History: Joint pain Findings: No acute fracture or dislocation is seen. Osseous alignment is anatomic. Prominent TACE 2 o ssicular noted. Joint spaces are preserved without erosive or degenerative change. Soft tissues are u nremarkable. Impression: No acute abnormality. Prominent type II os navicular. Reviewed, dictated and finalized at location . Impression: No acute abnormality. Prominent type II os navicular.
== END 2023-11-09 11:04 | disposition home or self-care (01) ==
PROVIDERS: PCP Family Medicine; Visit Provider Nurse Practitioner
DX: M25.50 Pain in unspecified joint (principal); M19.032 Primary osteoarthritis, left wrist; M19.031 Primary osteoarthritis, right wrist
CPT/HCPCS: 73100; 73120; 73600; 73620

== ENCOUNTER 2023-12-05 16:52 | Outpatient (CLI) | payer MEDICARE, SELFPAY ==
--- NOTE | ~2023-12-05 | MR_ITS ---
MRI of the lumbar spine Clinical History: Back pain Technique: Axial T2-weighted images, and sagittal T1-weighted, T2-weighted, and T2 fat-sat images wer e acquired. Findings: There is no fracture or subluxation of the lumbar spine. Vertebral bodies maintain normal h eight and alignment. No bone marrow signal abnormality seen. At L1-L2, there is no disc bulge or herniation. There is mild to moderate facet arthropathy. No centr al canal stenosis or neural foraminal narrowing. At L2-L3, there is no disc bulge or herniation. There is moderate to advanced facet arthropathy. No c entral canal stenosis or neural foraminal narrowing. L3-L4, there is minimal disc bulge with moderate facet arthropathy. No central canal stenosis. There is mild to moderate left neural foraminal narrowing. Right neural foramen preserved. At L4-L5, there is minimal disc bulge with moderate to advanced facet arthropathy. No central canal s tenosis. Neural foramina are preserved. At L5-S1, there is no disc bulge or herniation. There is moderate facet arthropathy. No central canal stenosis or neural foraminal narrowing. Paravertebral soft tissues are unremarkable. Impression: Mild degenerative spondylosis, as above. Reviewed, dictated and finalized at location . Impression: Mild degenerative spondylosis, as above.
== END 2023-12-05 16:53 | disposition home or self-care (01) ==
PROVIDERS: PCP Family Medicine; Visit Provider Nurse Practitioner Family
DX: M54.50 Low back pain, unspecified (principal); M43.06 Spondylolysis, lumbar region
CPT/HCPCS: 72148

== ENCOUNTER 2024-05-18 09:13 | Emergency (ER) | payer OTHER, SELFPAY ==
--- NOTE | ~2024-05-18 | XR_ITS ---
XR foot RT min 3V 05/18/2024 09:37 Indication: Right foot pain Procedure: 4 views right foot Comparison: 10/13/2023 Findings: Lisfranc joint intact. No fracture, subluxation or dislocation. No significant soft tissue abnormality. No foreign bodies. There are degenerative changes of the tibiotalar joint. Prominent ost eophyte formation along the talonavicular junction. There is a possible nondisplaced fracture base of the fifth proximal phalanx, seen on oblique view only. Impression: 1: Possible nondisplaced fracture base of the right fifth proximal phalanx. Correlate for point tende rness. Reviewed, dictated and finalized at location B. TURNER Impression: 1: Possible nondisplaced fracture base of the right fifth proximal phalanx. Cor relate for point tenderness.
[2024-05-18 09:25] VITALS: BP 120/70; PULSE 78; RESP 16; TEMP 36.3; O2SAT 100
--- NOTE | 2024-05-18 09:36 | ED_ITS ---
HPI - Extremity Injury (Lower) General Chief Complaint: Extremity Injury, Lower Stated Complaint: rt foot injury Time Seen by Provider: 05/18/24 09:36 Source: patient Mode of arrival: ambulatory Limitations: no limitations History of Present Illness HPI Narrative: 58-year-old female presents with complaint pain, swelling, bruising to right foot. Two days ago patient was walking and hit her right foot on ottoman. Reports that she felt a crack to foot, is concerned for fracture. Ambulatory with limp, brought into urgent care by her in a wheelchair. Range of motion decreased due to pain, distal neurovascularly intact. All systems reviewed and negative except as. Related Data Home Medications ?Medication ?Instructions ?Recorded ?Confirmed ?Last Taken ?Type gabapentin 600 mg tablet 600 mg PO TID 11/29/19 10/13/23 01/29/20 05:00 History tizanidine 2 mg capsule 2 mg PO TID PRN muscle spasticity 11/29/19 10/13/23 01/29/20 05:00 History diazepam 2 mg tablet 2 mg PO QHS PRN 08/07/20 10/13/23 Unknown History zolmitriptan 5 mg nasal spray 1 spray intranasal Q2H PRN 05/05/22 10/13/23 Unknown History (Zomig) Allergies Allergy/AdvReac Type Severity Reaction Status Date / Time buspirone Allergy Intermediate ANXIETY, Verified 05/18/24 09:21 HEAD CRAWLING,ACID REFLUX cefuroxime Allergy Intermediate NAUSEA,DIZZ Verified 05/18/24 09:21 INESS,TINGL ING hydrocodone Allergy Intermediate HEART Verified 05/18/24 09:21 PALPATATIONS,DIZZINESS,NAUSEA,HALLUCINATIONS meloxicam Allergy Intermediate SEVERE Verified 05/18/24 09:21 MIGRAINE,VOMITTING acetaminophen (From Allergy Mild Unknown Verified 05/18/24 09:21 Darvocet-N) baclofen Allergy Mild MADE ACID Verified 05/18/24 09:21 REFLUX WORSE bupropion (From Wellbutrin) Allergy Mild Palpitation Verified 05/18/24 09:21 s Cephalosporins Allergy Mild Unknown Verified 05/18/24 09:21 duloxetine (From Cymbalta) Allergy Mild Dizziness Verified 05/18/24 09:21 escitalopram Allergy Mild TREMORS Verified 05/18/24 09:21 AND INSOMIA nortriptyline Allergy Mild CAUSED Verified 05/18/24 09:21 SEVERE ACID REFLUX, CAN'T FUNCTION pregabalin (From Lyrica) Allergy Mild Unknown Verified 05/18/24 09:21 propoxyphene (From Allergy Mild Unknown Verified 05/18/24 09:21 Darvocet-N) rabeprazole Allergy Mild Other Verified 05/18/24 09:21 tetracycline Allergy Mild MIGRAINE Verified 05/18/24 09:21 topiramate Allergy Mild HEART Verified 05/18/24 09:21 PALPATATIONS, ANXIETY tramadol Allergy Mild HEADACHE,NAUSEA,DRY Verified 05/18/24 09:21 MOUTH venlafaxine Allergy Mild Unknown Verified 05/18/24 09:21 Venlafaxine Analogues Allergy Mild Anxiety Verified 05/18/24 09:21 modafinil Allergy Unknown ANXIETY,SCALP Verified 05/18/24 09:21 CRAWLING nitrofurantoin Allergy Unknown SEVERE Verified 05/18/24 09:21 HEADACHE, NAUSEA Review of Systems Review of Systems: CONSTITUTIONAL: Denies fever, chills, or sweats. EYES: Denies visual changes, redness, or discharge. ENT: Denies rhinorrhea, congestion, sore throat, or otalgia. CARDIOVASCULAR: Denies chest pain, palpitations, or edema. RESPIRATORY: Denies cough or dyspnea. GASTROINTESTINAL: Denies abdominal pain, nausea, vomiting, or diarrhea. GENITOURINARY: Denies dysuria or hematuria. SKIN: Denies rash or itching. MUSCULOSKELETAL: Denies back pain, joint pain, or myalgia. reports pain, bruising, swelling right foot. NEUROLOGIC: Denies headache, numbness, or weakness. PSYCHIATRIC: Denies anxiety or depression. All other systems reviewed are negative, except as documented in HPI. [facility] [place] Past Medical History Medical History Adhesive capsulitis of right shoulder BMI 28.0-28.9,adult BMI 29.0-29.9,adult BMI 30.0-30.9,adult Colon, diverticulosis GERD (gastroesophageal reflux disease) IBS (irritable bowel syndrome) Irritable bowel syndrome with diarrhea Multiple sclerosis relapsing; takes meds at present time Nausea Small intestinal bacterial overgrowth (SIBO) Upper abdominal pain Surgical History Surgical History History of ankle surgery 2010, Right Dr. Suleiman Foley of tonsillectomy Family History Family History Mother Hypertension Grandparent Hypertension Family history of malignant neoplasm of skin Family history of coronary artery disease Diabetes mellitus Family history of heart disease in male family member before age 55 Social History Social History Smoking status: Never smoker Alcohol intake: former Substance use: never Substance use type: does not use Do You Feel Safe in your Home?: Yes Lack of Transportation: No Lack of Food: Never True Current Housing: I Have Housing Concerned About Future Housing: No Difficulty Paying Gas/Electric Bills: No Difficulty Paying for Meds: No Currently Unemployed: No Education: High School Diploma/GED Difficulty w/ Childcare or Family Care: No Living arrangements: with family Occupation/Education: occupation Gender identity (if verbalized by the patient): Female Comments At time of signature, agree with nursing past medical, surgical, social and family history. There is no relevant family history pertinent to the presenting complaint. Exam Narrative: GENERAL: This is a well-nourished, well-developed patient, in no apparent distress. HEAD: normocephalic, atraumatic. EYES: PERRL. Sclera clear/white. Vision is grossly intact. EARS: External ears normal NOSE: External nose normal NECK: Neck supple, non-tender without lymphadenopathy, masses or thyromegaly. CARDIOVASCULAR: Regular rate and rhythm without murmurs, gallops, or rubs. RESPIRATORY: Clear to auscultation. Breath sounds equal bilaterally. No wheezes, rales, or rhonchi. SKIN: warm, Dry, intact with no suspicious lesions or rash, good texture and turgor. NEURO: awake, alert, and oriented to person, place and time. There were no obvious focal neurologic abnormalities. EXTREMITIES: swelling to lateral aspect R foot with bruising, tenderness to distal 5th metatarsal and proximal 5th phalanx. no deformity noted. ROM decreased due to pain. distal NV intact. Course Course Level of Care: Express Care Visit Vital Signs Vital signs: Vital Signs Temperature 36.3 C L 05/18/24 09:25 Pulse Rate 78 05/18/24 09:25 Respiratory Rate 16 05/18/24 09:25 Blood Pressure 120/70 05/18/24 09:25 Pulse Oximetry 100 05/18/24 09:25 Oxygen Delivery Room Air 05/18/24 09:25 Temperature 36.3 C L 05/18/24 09:25 Pulse Rate 78 05/18/24 09:25 Respiratory Rate 16 05/18/24 09:25 Blood Pressure 120/70 05/18/24 09:25 Pulse Oximetry 100 05/18/24 09:25 Oxygen Delivery Room Air 05/18/24 09:25 Reviewed MDM - Extremity Injury (Lower) MDM Narrative Medical decision making narrative: per radiologist possible fracture to right proximal Flomax. Patient is tender on palpation to right proximal phalanx. Most likely fracture, recommend fracture care follow-up with primary care physician. Patient arrived with postop shoe from home. Placed postop shoe for patient. She has cane and crutches at home if she needs them. Was offered scheduled pain medication but did not feel was necessary. Will take ibuprofen and Tylenol at home. Patient is aware of diagnosis, understands and agrees to treatment plan. Anticipatory guidance given. Patient agrees to follow-up as directed and is aware of reasons to seek care at the emergency department. Portions of this record may have been created with voice recognition software Differential Diagnosis Differential diagnosis: Likely fracture of toe and other ( Foot fracture) Imaging Data My impression: Agree with radiologist Radiologist's impression: XR foot RT min 3V 05/18/2024 09:37 Indication: Right foot pain Procedure: 4 views right foot Comparison: 10/13/2023 Findings: Lisfranc joint intact. No fracture, subluxation or dislocation. No significant soft tissue abnormality. No foreign bodies. There are degenerative changes of the tibiotalar joint. Prominent osteophyte formation along the talonavicular junction. There is a possible nondisplaced fracture base of the fifth proximal phalanx, seen on oblique view only. Impression: 1: Possible nondisplaced fracture base of the right fifth proximal phalanx. Correlate for point tenderness. Discharge Plan Discharge Clinical Impression: Closed fracture of fifth toe of left foot Patient Disposition: Home, Self-Care Condition: Stable Instructions: Toe Fracture (ED) Additional Instructions: The x-ray of your right foot shows a possible fracture to your right toe. Wear postop shoe for comfort. Take ibuprofen or Tylenol every 6-8 hours as needed for pain. Apply ice as needed for pain. Elevate when at rest. Follow-up with your primary care physician in the next 3-4 weeks to evaluate healing. Patient Language: Hebrew Prescriptions: No Action diazepam 2 mg tablet 2 mg PO QHS PRN gabapentin 600 mg tablet 600 mg PO TID tizanidine 2 mg capsule 2 mg PO TID PRN (Reason: muscle spasticity) zolmitriptan [Zomig] 5 mg spray,non-aerosol 1 spray intranasal Q2H PRN Rx Instructions: administer into one nostril (only); alternate nostrils; do not exceed 10 mg /24 hrs ondansetron HCl 4 mg tablet 4 mg PO Q8H PRN (Reason: nausea and vomiting) Qty: 30 1RF celecoxib [Celebrex] 50 mg capsule 50 mg PO DAILY Qty: 30 0RF Follow-up/Referrals: Anil Escoto MD [Primary Care Provider] - Time of Disposition: 09:57
== END 2024-05-18 09:58 | disposition home or self-care (01) ==
PROVIDERS: Emergency Provider Nurse Practitioner Family; PCP Family Medicine
DX: S92.512A Displaced fracture of proximal phalanx of left lesser toe(s), initial encounter for closed fracture (principal); W22.03XA Walked into furniture, initial encounter
CPT/HCPCS: 73630; 99214; G0463

== ENCOUNTER 2024-07-23 14:03 | Emergency (ER) | payer OTHER, SELFPAY ==
--- NOTE | 2024-07-23 14:05 | ED_ITS ---
HPI - Back Pain/Injury General Chief Complaint: Back Pain/Injury Stated Complaint: lower back pain Time Seen by Provider: 07/23/24 14:32 Source: patient, RN notes reviewed and old records reviewed Mode of arrival: ambulatory Limitations: no limitations History of Present Illness HPI Narrative: 58-year-old female presents to the [facility] with generalized low back pain started 2 hours prior to arrival. Patient reports that it feels like her ?kidneys are about to explode. ? Reports nausea without vomiting. Did take Tylenol for not feeling well at not o'clock this morning. Denies any urinary symptoms. Patient also reports left upper abdominal pain. Onset (ago): hour(s) (2) Related Data Home Medications ?Medication ?Instructions ?Recorded ?Confirmed ?Last Taken ?Type gabapentin 600 mg tablet 600 mg PO TID 11/29/19 10/13/23 01/29/20 05:00 History tizanidine 2 mg capsule 2 mg PO TID PRN muscle spasticity 11/29/19 10/13/23 01/29/20 05:00 History diazepam 2 mg tablet 2 mg PO QHS PRN 08/07/20 10/13/23 Unknown History zolmitriptan 5 mg nasal spray 1 spray intranasal Q2H PRN 05/05/22 10/13/23 Unknown History (Zomig) Allergies Allergy/AdvReac Type Severity Reaction Status Date / Time buspirone Allergy Intermediate ANXIETY, Verified 07/23/24 14:13 HEAD CRAWLING,ACID REFLUX cefuroxime Allergy Intermediate NAUSEA,DIZZ Verified 07/23/24 14:13 INESS,TINGL ING hydrocodone Allergy Intermediate HEART Verified 07/23/24 14:13 PALPATATIONS,DIZZINESS,NAUSEA,HALLUCINATIONS meloxicam Allergy Intermediate SEVERE Verified 07/23/24 14:13 MIGRAINE,VOMITTING acetaminophen (From Allergy Mild Unknown Verified 07/23/24 14:13 Darvocet-N) baclofen Allergy Mild MADE ACID Verified 07/23/24 14:13 REFLUX WORSE bupropion (From Wellbutrin) Allergy Mild Palpitation Verified 07/23/24 14:13 s Cephalosporins Allergy Mild Unknown Verified 07/23/24 14:13 duloxetine (From Cymbalta) Allergy Mild Dizziness Verified 07/23/24 14:13 escitalopram Allergy Mild TREMORS Verified 07/23/24 14:13 AND INSOMIA nortriptyline Allergy Mild CAUSED Verified 07/23/24 14:13 SEVERE ACID REFLUX, CAN'T FUNCTION pregabalin (From Lyrica) Allergy Mild Unknown Verified 07/23/24 14:13 propoxyphene (From Allergy Mild Unknown Verified 07/23/24 14:13 Darvocet-N) rabeprazole Allergy Mild Other Verified 07/23/24 14:13 tetracycline Allergy Mild MIGRAINE Verified 07/23/24 14:13 topiramate Allergy Mild HEART Verified 07/23/24 14:13 PALPATATIONS, ANXIETY tramadol Allergy Mild HEADACHE,NAUSEA,DRY Verified 07/23/24 14:13 MOUTH venlafaxine Allergy Mild Unknown Verified 07/23/24 14:13 Venlafaxine Analogues Allergy Mild Anxiety Verified 07/23/24 14:13 modafinil Allergy Unknown ANXIETY,SCALP Verified 07/23/24 14:13 CRAWLING nitrofurantoin Allergy Unknown SEVERE Verified 07/23/24 14:13 HEADACHE, NAUSEA Review of Systems Review of Systems: All systems reviewed & are unremarkable except as noted in HPI and below Constitutional: Constitutional: Reports no additional constitutional complaints ENT: Reports system reviewed and no additional complaints, except as documented Cardiovascular: Cardiovascular: Reports no additional cardiovascular complaints, Denies chest pain and Denies dyspnea Respiratory: Respiratory: Reports no additional respiratory complaints, Denies chest congestion, Denies cough and Denies dyspnea Gastrointestinal: Gastrointestinal: Reports as per HPI, Reports abdominal pain and Reports nausea Musculoskeletal: Musculoskeletal: Reports as per HPI and Reports back pain Integumentary/Breasts: Skin/Breast: Reports system reviewed and no additional complaints, except as docu [facility] Past Medical History Medical History BMI 30.0-30.9,adult BMI 29.0-29.9,adult Irritable bowel syndrome with diarrhea Small intestinal bacterial overgrowth (SIBO) BMI 28.0-28.9,adult Adhesive capsulitis of right shoulder IBS (irritable bowel syndrome) Colon, diverticulosis GERD (gastroesophageal reflux disease) Upper abdominal pain Nausea Multiple sclerosis relapsing; takes meds at present time Surgical History Surgical History History of ankle surgery 2009, Right Dr. Bearden Hx of tonsillectomy Family History Family History Mother Hypertension Grandparent Hypertension Family history of malignant neoplasm of skin Family history of coronary artery disease Diabetes mellitus Family history of heart disease in male family member before age 55 Social History Social History Smoking status: Never smoker Alcohol intake: former Substance use: never Substance use type: does not use Do You Feel Safe in your Home?: Yes Lack of Transportation: No Lack of Food: Never True Current Housing: I Have Housing Concerned About Future Housing: No Difficulty Paying Gas/Electric Bills: No Difficulty Paying for Meds: No Currently Unemployed: No Education: High School Diploma/GED Difficulty w/ Childcare or Family Care: No Living arrangements: with family Occupation/Education: occupation Gender identity (if verbalized by the patient): Female Comments At the time of my signature, I reviewed and agree with the nursing past medical, surgical, social, and family history. There is no relevant family history pertinent to the patient complaint. Exam Const: General: cooperative, no acute distress, well developed, alert, anxious, uncomfortable and well nourished Nutritional Appearance: well nourished and obese Orientation/consciousness: patient oriented x3 Limitations: no limitations HENMT: Head: normal to inspection Eyes: General: appearance normal, both eyes and all related structures Alignment and Position: alignment normal Neck: Neck: normal visual inspection, full ROM, no lymphadenopathy and no meningeal signs Chest: Chest palpation & inspection: normal inspection of the chest Resp: Effort & Inspection: normal respiratory effort and able to speak in complete sentences Auscultation: clear to auscultation bilaterally, no crackles, no rales, no rhonchi and no wheezes Cardio: Rate: tachycardic GI: GI Palp: No abdominal tenderness and Yes Soft to palpation Auscultation: normal bowel sounds : General: Yes no CVA tenderness Back/Spine/Pelvis: Back: no CVA tenderness Cervical Spine: cervical ROM abnormal Thoracic/Lumbar Spine: paraspinal muscle tenderness bilaterally in the lower lumbar, No thoracic spinal tenderness and No lumbar spinal tenderness Skin: General skin exam: normal color and no rashes or lesions noted Neuro: General: patient oriented x3, gait normal, moves all extremities and no meningeal signs Cognition (Neuro): normal cognition Speech: normal speech Gait exam (Neuro): Normal gait present Extrem: General: normal to inspection, full ROM, capillary refill normal and normal gait Psych: Appearance: grossly normal and well kempt Mental Status: mental status grossly normal Speech and movement: Normal speech and movement present and Clear speech present Affect: normal affect Attitude: cooperative Course Course Level of Care: Express Care Visit Vital Signs Vital signs: Vital Signs Temperature 99.1 F 07/23/24 14:13 Pulse Rate 123 H 07/23/24 14:13 Respiratory Rate 20 07/23/24 14:13 Blood Pressure 108/49 L 07/23/24 14:13 Pulse Oximetry 99 07/23/24 14:13 Oxygen Delivery Room Air 07/23/24 14:13 Temperature 99.1 F 07/23/24 14:13 Pulse Rate 123 H 07/23/24 14:13 Respiratory Rate 20 07/23/24 14:13 Blood Pressure 108/49 L 07/23/24 14:13 Pulse Oximetry 99 07/23/24 14:13 Oxygen Delivery Room Air 07/23/24 14:13 Reviewed Transfer Transfered to: [facility] Transportation: Other (Declined EMS. Wants her significant other to drive her) Transfer rationale: Patient presents with lower back pain, abdominal pain, nauseated x2 hours Patient's urine dip showed blood, no nitrites or leukocytes, unlikely a UTI. Patient reporting severe pain of 10 and 10. No midline tenderness. Unable to reproduce pain with palpation of abdomen but states ?it is burning and painful inside. ? Discussed with patient we are unable to do further evaluation and she should be transferred to the ER. Patient shows bowel [facility]. Report given Accepting physician: Spoke with Dr. Dwyer, and Belcher charge nurse MDM - Back Pain/Injury MDM Narrative Medical decision making narrative: Patient sitting uncomfortably in exam room. Tachycardic but otherwise vitals are stable. Patient presents with lower back pain, abdominal pain, nauseated x2 hours. Patient's urine dip showed blood, no nitrites or leukocytes, unlikely a UTI. Patient reporting severe pain of 10 and 10. No midline tenderness. Unable to reproduce pain with palpation of abdomen but states ?it is burning and painful inside. ? Discussed with patient we are unable to do further evaluation and she should be transferred to the ER. Patient shows bowel [facility]. Report given Transfer instructions reviewed with patient and her significant other. Do not eat or drink until cleared by ER provider. Offered EMS, both declined. Male with her stated he will drive her All questions have been answered, and the patient deny any further questions with discharge and discharge plan. Some parts of this dictation were generated by voice recognition software and may contain typographical and/or grammatical inaccuracies. Differential Diagnosis Differential diagnosis: Likely lumbar radiculopathy, strain of lumbar region, pyelonephritis and other (UTI, kidney stone, acute abdomen) Lab Data Labs: Lab Results 07/23/24 Range/Units 14:22 POC Urine Color Yellow POC Urine Clarity Clear POC Urine pH 7.0 POC Ur Specif [place] 1.020 POC Urine Protein Negative (Negative) POC Ur Glucose (UA) Negative (Negative) POC Urine Ketones Trace (Negative) POC Urine Blood 1+ (Negative) POC Urine Nitrite Negative (Negative) POC Urine Bilirubin Negative (Negative) POC Urine Urobilinogen 0.2 POC U Leukocyte Esteras Negative (Negative) Reviewed Critical Care Time Critical Care Time Critical Care Time: No Discharge Plan Discharge Clinical Impression: Abdominal pain, left lateral Low back pain Qualifiers: Chronicity: chronic Back pain laterality: bilateral Sciatica presence: without sciatica Qualified Code(s): M54.50 - Low back pain, unspecified Patient Disposition: Acute Care Hospital Condition: Stable Patient Language: Malay Prescriptions: No Action diazepam 2 mg tablet 2 mg PO QHS PRN gabapentin 600 mg tablet 600 mg PO TID tizanidine 2 mg capsule 2 mg PO TID PRN (Reason: muscle spasticity) zolmitriptan [Zomig] 5 mg spray,non-aerosol 1 spray intranasal Q2H PRN Rx Instructions: administer into one nostril (only); alternate nostrils; do not exceed 10 mg /24 hrs ondansetron HCl 4 mg tablet 4 mg PO Q8H PRN (Reason: nausea and vomiting) Qty: 30 1RF celecoxib [Celebrex] 50 mg capsule 50 mg PO DAILY Qty: 30 0RF Follow-up/Referrals: Anil Escoto MD [Primary Care Provider] -
[2024-07-23 14:13] VITALS: BP 108/49; PULSE 123; RESP 20; TEMP 37.3; O2SAT 99
[2024-07-23 14:24] LABS: EDUAAPPEAR Clear; EDUABILI Negative (Negative); EDUABLOOD 1+ (Negative); EDUACOLOR1 Yellow; EDUAGLUCOSE Negative (Negative); EDUAKETONE Trace (Negative); EDUALEUKO Negative (Negative); EDUANITRATE Negative (Negative); EDUAPROTEIN Negative (Negative); EDUAUROBILI 0.2
--- OUTSIDE RECORDS SUMMARY | 2024-07-23 16:37 | XMS_ITS | Clinical Summary ---
Author Organization [facility] B Address [address] [place] [address] Care Team Providers Care Qa Specialist Name Role Phone Anil Escoto MD Primary Care Provider Allergies Active Allergy Reactions Criticality Noted Date Comments Rabeprazole Unknown 10/14/2017 Baclofen Unknown 10/14/2017 Buspirone Duloxetine Unknown 10/14/2017 Propoxyphene-Acetaminophen Unknown 8 Venlafaxine Unknown 10/14/2017 Escitalopram Oxalate Unknown 10/14/2017 Pregabalin Unknown 10/14/2017 Meloxicam Nausea & Vomiting Low 02/02/2017 Migraine Nitrofurantoin Unknown 10/14/2017 Nortriptyline Other (See comments) Medium 10/14/2017 migraine Modafinil Unknown 10/14/2017 Tetracycline Topiramate Unknown 10/14/2017 Tramadol Unknown 10/14/2017 Hydrocodone-Acetaminophen Hallucinations Medium 2017 Bupropion Unknown 10/14/2017 Medications diazePAM (VALIUM) 2 mg tablet Take 1 tablet by mouth three times daily as needed for vertigo 30 tablet 0 Active Additional Information Patient taking differently: Take 1 tablet by mouth three times daily as needed for vertigo prn, Reported on 08/20/2021 ergocalciferol (VITAMIN D) 50,000 unit capsule TAKE 1 CAPSULE BY MOUTH 1 TIME A WEEK 12 capsule 0 Active aspirin 81 mg enteric coated tablet Take 1 tablet (81 mg total) by mouth as needed (other) Taking one tablet every tuesday Active gabapentin (NEURONTIN) 600 mg tablet Take 1 tablet (600 mg total) by mouth 3 (three) times a day 270 tablet 3 4 Active tiZANidine (ZANAFLEX) 2 mg tablet Take 1 tablet (2 mg total) by mouth 3 (three) times a day 270 tablet 3 4 Active Active Problems Problem Noted Date Diagnosed Date Precordial pain 07/09/2021 Assessment & Plan (07/09/2021 1:49 PM [employer] LO[employer]): Stable, but she has had chest discomfort and palpitations, and has some cardiac risk factors. I recommended a stress echo to re-evaluate left ventricular function and rule out any significant ischemia. Further recommendations will await these results. I made no change in her medical regimen today. I advised her to diet and exercise regularly. Hypercholesteremia 07/09/2021 Assessment & Plan (07/09/2021 1:50 PM [employer]ES[employer] LO[employer] PROCESSOR): Lipids are well controlled in the absence of vascular disease. Continue diet and exercise. VT (ventricular tachycardia) 07/08/2021 Assessment & Plan (07/09/2021 1:50 PM [employer]ES[employer] LO[employer] PROCESSOR): Stable, brief nonsustained VT with normal left ventricular function, asymptomatic. Continue same therapy. Acid reflux 06/26/2021 Migraine 06/26/2021 Overview (06/26/2021): Updating IMO/ICD9 Code and Description Palpitations 06/26/2021 Assessment & Plan (07/09/2021 1:49 PM [employer]OLES[employer] LO[employer] PROCESSOR): As above, stress echo will be obtained, and further recommendations will be forthcoming then. 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 Migraine 06/15/2013 Overview (08/13/2016): Migraine headache Isolated cervical dystonia 03/22/2013 Overview (08/13/2016): Cervical dystonia Diffuse cystic mastopathy 09/29/2009 Multiple sclerosis (CMS/HCC) 11/27/2008 Overview (06/26/2021): MS (multiple sclerosis) Encounters Date Type Department Care Team Description 07/23/2024 3:57 PM CDT - Present Emergency [facility] Emergency Department [address] [place] [address] Justo Mello, from Last 3 Months Immunizations Immunization Administration Dates Next Due Influenza, Unspecified 07/03/2015 Pfizer SARS-CoV-2 Monovalent Vaccination (12+ Yrs) PURPLE 11/23/2020 Surgical History Surgery Date Site/Laterality Comments TONSILLECTOMY ANKLE SURGERY Medical History Medical History Date Comments Multiple sclerosis (HCC) multipl e sclerosis Hx Other Medical cervical dyston ia Hx Other Medical anxiety disorde r Hx Other Medical Headache, migra ine Vertigo vertigo Hx Other Medical Appendectomy Hx Other Medical laparoscopy Mononucleosis Pneumonia Migraine Vertigo Factor 5 Leiden mutation, heterozygous Multiple sclerosis (HCC) Family History Medical History Relation Name Comments Pulmonary embolism Father Squamous cell carcinoma Maternal Grandmother Coronary artery disease Mother Migraines Mother Migraine; Relation Name Status Comments Father Alive Maternal Grandmother Mother Alive Social History Tobacco Use Types Packs/Day Years Used Date Smoking Tobacco: Never Smokeless Tobacco: Never Tobacco Cessation:Counseling Given: Not Answered Alcohol Use Standard Drinks/Week Comments Yes 0 (1 standard drink = 0.6 oz pur e alcohol) rare AUDIT-C Answer Date Recorded Frequency of Alcohol Consumption Not on file 11/28/2023 Q2: How many drinks containi ng alcohol do you have on a typical day when you are drinking? Patient does not drink Frequency of Binge Drinking Not on file 11/07 Comments No Sex and Gender Information Value Date Recorded Sex Assigned at Not on file Legal Sex Female 1:15 PM [employer] PROC[employer] Gender Identity Female 02/29/2020 6:35 AM CDT Sexual Orientation Straight 02/29/2020 6: 35 AM CDT Occupation Industry Job Start Date Job End Date Disabled Not on file Not on file Not on file Obstetrics History Last Filed Vital Signs Vital Sign Reading Time Taken Comments Blood Pressure 137/76 07/23/2024 3:32 PM CDT Pulse 135 07/23/2024 3:32 PM CDT Temperature 38.6 C (101.5 F) 07/23/2024 3:32 PM CDT Respiratory Rate 25 07/23/2024 3:32 PM CDT Oxygen Saturation 97% 07/23/2024 3:32 PM CDT Inhaled Oxygen Concentration - - Weight 83.6 kg (184 lb 4.9 oz) 07/23/2024 3:32 P M CDT Height 158.8 cm (5' 2.52 ) 11/28/2023 2:50 PM CD T Body Mass Index 33.15 11/28/2023 2:50 PM CDT Plan of Treatment Health Maintenance Due Date Last Done Comments Cervical Cancer Screening 1965 Colon Cancer Screening-Colonoscopy 1965 Depression Screening 1965 Hepatitis C Screening 1965 DTaP/Tdap/Td Vaccine (1 - Tdap) 1976 Hepatitis B Screening 09/03/1983 Regular Well Visit/Exam 18-64 09/03/1983 Zoster Vaccine (1 of 2) 09/03/2015 Covid-19 Vaccine ( - season) 2024 08/02/2021, 12/14/2020, 11/23/2020 Influenza Vaccine (#1) 2024 07/03/2015 Breast Cancer Screening-Mammogram 03/30/2025 03/30/2024, 03/30/2024, 03/25/2023, Additional history exists Pneumococcal vaccine <65 Aged Out No longer eligible based on patient's age to complete this topic Procedures * The patient is currently admitted. The information in this section might not be complete until the patient is discharged. Procedure Name Priority Date/Time Associated Diagnosis Comments EGFR STAT 07/23/2024 3:55 PM CDT URINALYSIS, MICROSCOPIC ONLY STAT 07/23/2024 3:55 PM CDT DIFFERENTIAL AUTO STAT 07/23/2024 3:5 5 PM CDT LIPASE STAT 07/23/2024 3:55 PM CDT COMPREHENSIVE METABOLIC PANEL STAT 07/23/2024 3:55 PM CDT CBC WITH AUTO DIFFERENTIAL STAT 07/23/2024 3:55 PM CDT URINALYSIS AND REFLEX TO MICROSCOPIC AND CULTURE STAT 07/23/2024 3:55 PM CDT from Last 3 Months Results * eGFR (07/23/2024 3:55 PM CDT) eGFR >90 >=60 mL/min/1. 73 m2 Comment: Interpretive Data Reference Interval Normal >/= 90 mL/min/1.73m2 Mildly decreased* 60 - 89 mL/min/1.73m2 Mildly to moderately decreased 45 - 59 mL/min/1.73m2 Moderately to severely decreased 30 - 44 mL/min/1.73m2 Severely decreased 15 - 29 mL/min/1.73m2 Kidney Failure < 15 mL/min/1.73m2 *Relative to young adult level Estimated glomerular filtration rate is determined by the 2020 CKD-EPI equation recommended by the National Kidney Foundation (A Unifying Approach to GFR Estimation: Recommendations of the NKF-ASK Task Force on Reassessing the Inclusion of Race in Diagnosing Kidney Disease, JASN 202). The CKD-EPI equation should not be used for patients with unstable renal function and has not been validated in children and those over 70. Current interpretive data was last reviewed 2021. Testing performed by: [facility], [address] [place] [address], [place]., [address] Blood 07/23/2024 3:55 PM CDT 07/23/2024 4:02 PM CDT us Makayla COFFMAN LAB BLOOD ORDERABLES Final Resu lt [facility] [address] [facility] [place] [address] * (ABNORMAL) Differential, auto (07/23/2024 3:55 PM CDT) Neutrophil abs 6.2 1.5 - 6.5 K/cumm Comment:Testing performed by : [address] [address] Imm gran abs 0.0 0.0 - 0.1 K/cumm [facility] Comment:Testing performed by : [address] [address] Lymphocyte abs 0.2(L) 0.8 - 3.3 K/cumm [facility] Comment:Testing performed by : [address] [address] Monocyte abs 0.4 0.2 - 0.8 K/cumm [facility] Comment:Testing performed by : [address] [address] Eosinophil abs 0.0 0.0 - 0.5 K/cumm [facility] Comment:Testing performed by : [address] [address] Basophil abs 0.1 0.0 - 0.1 K/cumm [facility] Comment:Testing performed by : [address] [address] Neutrophil pct 90.4 % [facility] Comment: Interpretive Data Percent cell count reference ranges are not reported, since discordance with absolute values may lead to misinterpretation of CBC data. Current Interpretive Data was last revised on 2017. Testing performed by: [address] [address] Imm gran pct 0.3 % [facility] Comment: Interpretive Data Percent cell count reference ranges are not reported, since discordance with absolute values may lead to misinterpretation of CBC data. Current Interpretive Data was last revised on 2017. Testing performed by: [address] [address] Lymphocyte pct 3.1 % [facility] Comment: Interpretive Data Percent cell count reference ranges are not reported, since discordance with absolute values may lead to misinterpretation of CBC data. Current Interpretive Data was last revised on 2017. Testing performed by: [address] [address] Monocyte pct 5.1 % [facility] Comment: Interpretive Data Percent cell count reference ranges are not reported, since discordance with absolute values may lead to misinterpretation of CBC data. Current Interpretive Data was last revised on 2017. Testing performed by: [address] [address] Eosinophil pct 0.4 % [facility] Comment: Interpretive Data Percent cell count reference ranges are not reported, since discordance with absolute values may lead to misinterpretation of CBC data. Current Interpretive Data was last revised on 2017. Testing performed by: [address] [address] Basophil pct 0.7 % [facility] Comment: Interpretive Data Percent cell count reference ranges are not reported, since discordance with absolute values may lead to misinterpretation of CBC data. Current Interpretive Data was last revised on 2017. Testing performed by: [address] [address] Blood 07/23/2024 3:55 PM CDT 07/23/2024 4:02 PM CDT us Makayla COFFMAN LAB BLOOD ORDERABLES Final Resu lt [facility] [address] [facility] [place] [address] * (ABNORMAL) Urinalysis reflex to microscopic and culture Urine (07/23/2024 3:55 PM CDT) Color, ur Yellow Yellow Comment:Testing performed by : [address] [address] Clarity, ur Clear Clear [facility] Comment:Testing performed by : [facility], [address] [place] [address]., [address] Specific gravity, ur 1.016 1.003 - 1.030 [facility] Comment:Testing performed by : [address], [place]., [address] pH, urine 8.0 [facility] Comment: Interpretive Data U rine pH is affected by diet, medications, systemic acid-base disturbances, and renal tubular function. pH may affect urinary stone formation. For example, urine pH below 6.0 may help reduce the tendency for calcium phosphate stones and pH greater than 6.0 may reduce the tendency for uric acid stone formation. Source: [facility] [employer] Current Interpretive Data was last revised on 2017 Testing performed by: [address] [address] Protein, ur ql Negative Negative [facility] Comment:Testing performed by : [address] [address] Glucose, ur ql Negative Negative [facility] Comment:Testing performed by : [address] [address] Ketones, ur 1+(A) Negative [facility] Comment:Testing performed by : [address] [address] Bilirubin, ur Negative Negative [facility] Comment:Testing performed by : [address] [address] Blood, ur 1+(A) Negative [facility] Comment:Testing performed by : [address] [address] Urobilinogen, ur <2.0 <2.0 mg/dL [facility] Comment:Testing performed by : [address] [address] Nitrite, ur Negative Negative [facility] Comment:Testing performed by : [address] [address] Leukocyte esterase, ur 1+(A) Negative [facility] Comment:Testing performed by : [address] [address] UA reflex comment Reflex to microscopic UA will be performed. [facility]LEY Comment:Testing performed by : [address] [address] Urine 07/23/2024 3:55 PM CDT 07/23/2024 4:02 PM CDT Justo Kenneth Saabhu LAB MICROBIOLOGY - GENERAL ORDERABLES Final Result [facility] [address] [facility] [place] [address] * CBC with auto differential (07/23/2024 3:55 PM CDT) WBC 6.9 3.8 - 9.9 K/cumm Comment:Testing performed by : [address] [address] Hgb 13.6 11.9 - 15.5 g/dL [facility] Comment:Testing performed by : [address] [address] Hct 40.6 35.6 - 45.5 % [facility] Comment:Testing performed by : [address] [address] Plt 238 150 - 400 K/cumm [facility] Comment:Testing performed by : [address] [address] MPV 9.1 9.1 - 12.3 fL [facility] Comment:Testing performed by : [address] [address] RBC 4.70 3.90 - 5.20 M/cumm [facility]ARKLEY Comment:Testing performed by : [address] [address] MCV 86.4 81.3 - 96.4 fL [facility] Comment:Testing performed by : [address] [address] MCH 28.9 27.1 - 33.3 pg [facility] Comment:Testing performed by : [address] [address] MCHC 33.5 32.3 - 35.7 g/dL [facility] Comment:Testing performed by : [address] [address] RDW CV 12.0 11.1 - 14.9 % [facility] Comment:Testing performed by : [address] [address] RDW SD 38.3 35.7 - 48.1 fL [facility] Comment:Testing performed by : [address] [address] NRBC abs 0.00 0.00 - 0.01 K/cumm [facility] Comment:Testing performed by : [address] [address] Blood Venous blood specimen / Unknown 07/23/2024 3:55 PM CDT 07/23/2024 4:02 PM CDT Justo Mello LAB BLOOD ORDERABLES Final Result Performing Organization Address City/State/[facility] Co de Phone Number [facility] BARKLEY [address] [place] [address] [place] [address] * (ABNORMAL) Urinalysis, microscopic only (07/23/2024 3:55 PM CDT) WBC, ur 0-5 0 - 5 /HPF Comment:Testing performed by : [address] [address] RBC, ur 21-50(A) 0 - 2 /HPF [facility] BARKLEY Comment:Testing performed by : [address] [address] Epithelial cells, squamous, ur 11-20(A) 0 - 5 /HPF [facility] Comment:Testing performed by : [address] [address] Culture Reflex Comment Reflex conditions for urine culture (WBC >10) not met. [facility]ARKLEY Comment:Testing performed by : [address] [address] Urine 07/23/2024 3:55 PM CDT 07/23/2024 4:02 PM CDT Makayla COFFMAN LAB URINE ORDERABLES Final Resu lt [address] [place] [address] * Lipase (07/23/2024 3:55 PM CDT) Pathologist [facility] Lipase 17 10 - 99 Units/L Comment:Testing performed by : [address] [address] Blood Venous blood specimen / Unknown 07/23/2024 3:55 PM CDT 07/23/2024 4:02 PM CDT Justo Mello DO LAB BLOOD ORDERABLES Final Result Performing Organization Address City/[facility]/ZIP Co de Phone Number [id number] [place] [address] * (ABNORMAL) Comprehensive metabolic panel (07/23/2024 3:55 PM CDT) [facility] Sodium 134(L) 135 - 145 mmol/L Comment:Testing performed by : [address] [address] Potassium, pl 3.7 3.3 - 4.9 mmol/L [facility] Comment: Hemolyzed; Potassium value may be falsely elevated by as much as 1.0 mmol/L. Suggest redraw and reanalysis. Testing performed by: [address] [address] Chloride 98 97 - 110 mmol/L [facility] Comment:Testing performed by : [address] [address] CO2 25 22 - 32 mmol/L [facility] Comment:Testing performed by : [address] [address] Anion gap 11 2 - 15 mmol/L [facility] Comment:Testing performed by : [address] [address] BUN 10 6 - 25 mg/dL [facility] Comment:Testing performed by : [address] [address] Creatinine 0.72 0.60 - 1.10 mg/dL [facility] Comment:Testing performed by : [address] [address] Glucose 111 70 - 199 mg/dL [facility] Comment: Interpretive Data Fasting glucose >/= 126 mg/dl is diagnostic for diabetes. Fasting is defined as no caloric intake for at least 8 hours. Fasting glucose between 100 mg/dl to 125 mg/dl is diagnostic of prediabetes. In a patient with classic symptoms of hyperglycemia or hyperglycemic crisis, a random glucose >/= 200 mg/dl is diagnostic for diabetes. In the absence of unequivocal hyperglycemia, results should be confirmed by repeat testing. The classification and Diagnosis of Diabetes Diabetes Care 202; 46: S19-S40. Current interpretive data was last revised 2022. Testing performed by: [address] [address] Calcium 9.8 8.5 - 10.3 mg/dL [facility] Comment:Testing performed by : [address] [address] Bilirubin, total 0.8 0.1 - 1.2 mg/dL [facility] Comment:Testing performed by : [address] [address] Protein, pl 7.9 6.5 - 8.5 g/dL [facility] Comment:Testing performed by : [address] [address] Albumin 4.5 3.5 - 5.0 g/dL [facility] Comment:Testing performed by : [address] [address] Alk phos 95 40 - 130 Units/L [facility] Comment:Testing performed by : [address] [address] ALT 21 7 - 45 Units/L [facility] Comment:Testing performed by : [address] [address] AST 29 10 - 45 Units/L [facility] Comment: Hemolyzed; result may be falsely elevated Testing performed by: [address] [address] Blood 07/23/2024 3:55 PM CDT 07/23/2024 4:02 PM CDT Justo Kenneth Saabhu LAB BLOOD ORDERABLES Final Result [facility] [address] [facility] [place] [address] from Last 3 Months Additional Health Concerns Infection Onset Date Last Indicated Resolved Time COVID: Suspected 07/23/2024 07/23/2024 Insurance [facility] MEDICARE [facility] ADVANTAGE CHOICE PPO [facility] MEDICARE [employer] ADVANTAGE CHOICE PPO Advance Directives For more information, please contact: [phone] Documents on File Type Date Recorded Patient [employer] anation Power of [employer] Winder 11/25/2020 6:07 AM Care Teams Qa Specialist Relationship Specialty Start Date End Date Anil Escoto MD PCP - General 08/06/16
--- OUTSIDE RECORDS SUMMARY | 2024-07-23 16:37 | XMS_ITS | CONTINUITY OF CARE DOCUMENT ---
Author Name angelique hemabuster Address Unknown Organization [facility] [address] Address [address] [facility] [address] [place] [address] Phone [phone] Care Team Providers Care Social Media Coordinator Name Role Phone Jamarcus Eng MD Unavailable CAROLYN RAMIRES, YANNA F Unavailable CAROLYN RAMIRES, YANNA F Unavailable PROBLEMS Condition Status Date Provider Notes PALPITATIONS-11/14 HOLTER SR 59-122 active ? J julianna Paez RN MULTIPLE SCLEROSIS active Jamarcus Eng MD ENCOUNTERS Date Type Provider Location Encounter Diagnosis - In-person encounter Office Visit Jamarcus Eng MD [facility] - In-person encounter Office Visit Jamarcus Eng MD [facility] PALPITATIONS-11/14 [address] 59-122MULTIPLE SCLEROSIS VITAL SIGNS Date Observation Value Provider blood pressure, diastolic 68 mm[Hg] Federico Paez RN blood pressure, systolic 120 mm[Hg] Mani Paez RN pulse rate 93 /min Mani Paez RN oxygen saturation, oximetry 97 % Mani Paez RN respiratory rate E&M 16 /min Mani zimmerman RN weight E&M 178 [lb_av] Mani Paez RN blood pressure, diastolic 82 mm[Hg] Be amairani Gutierrez blood pressure, systolic 144 mm[Hg] Bet jericho Gutierrez pulse rate 91 /min Ned Lermaaco oxygen saturation, oximetry 96 % Ned Manacop respiratory rate E&M 16 /min Nde Manacop blood pressure, diastolic 74 mm[Hg] Rosemarie seph Manacop blood pressure, systolic 120 mm[Hg] Garrett eph Manacop weight E&M 175 [lb_av] [facility] ALLERGIES Allergy Name Onset Date Reaction Criticality Status CEFTIN nausea, dizziness, tingling High Cri ticality active CYMBALTA dry heaves, dizz iness, vertigo, tingling, feeling faint, chest pains High Criticality active LYRICA lowers blood platelets High Critical ity active VICODIN heart palpitatio ns, dizziness, nausea, hallucinations asleep and awake, also could not function High Criticality active ULTRAM horrible head pa in, feeling faint, nausea, dry mouth High Criticality active TOPAMAX heart palpitations and anxiety High Criticality active NORTRIPTYLINE could not functi on and caused severe acid reflux problems High Criticality active LEXAPRO caused tremors and insomnia High Cri ticality active EFFEXOR caused severe anxiety High Criticali ty active ACIPHEX didn't work for acid reflux High Cri ticality active BACLOFEN made acide reflux worse High Critica lity active TETRACYCLINE bad migraine High Criticality acti ve PROVIGIL tremors, insomnia High Criticality a ctive BUSPAR anxiety, head crawling, acid reflux High Criticality active RESULTS Date Observation Value Provider Reference Range Interpretation Location thyroid stimulating hormone, serum 1.74 u[IU]/mL Tereza Lazo RN alanine aminotransferase (SGPT), serum 12 1/L Tereza Lazo RN blood glucose, fasting 82 mg/dL Tereza Lazo RN platelet count 329 10*3/uL Tereza Lazo RN hematocrit, blood 41.5 % Tereza Lazo RN hemoglobin, blood 13.9 g/dL Tereza Lazo RN leukocyte count, blood 6.6 10*3/mm3 Tereza Lazo RN triglyceride, serum, fasting 100 mg/dL Tereza Lazo RN HDL cholesterol, serum 59 mg/dL Tereza Lazo RN LDL cholesterol, serum 113 mg/dL Tereza Lazo RN cholesterol, serum 192 mg/dL Tereza Lazo RN HISTORY OF MEDICATION USE Medication Status Instructions Dates Provider Indications Com ments METOPROLOL TARTRATE 25 MG ORAL TABLET active po one tab po twice daily 5 Jamarcus Eng MD ASPIRIN 81 MG ORAL TABLET active 1 tablet by mouth daily Ned Hirsch ZOLPIDEM TARTRATE 5 MG ORAL TABLET active 1 tablet by mouth at bedtime Ned Hirsch CELEBREX 200 MG ORAL CAPSULE completed 1 cappsule by mouth daily as needed - 5 Mani Paez RN ZOMIG TABS active 2mg, 5mg or nasal spray as directed Ned Lermaacomatthew DIAZEPAM 2 MG ORAL TABLET active 1 tablet by mouth one to three times daily as needed Ned Manacop CARISOPRODOL 350 MG ORAL TABLET active 1-2 tablets by mouth daily as needed Ned Manacop NEXIUM 40 MG ORAL CAPSULE DELAYED RELEASE active 1 tablet by mouth daily Ned Manacop BUDEPRION SR 100 MG ORAL TABLET EXTENDED RELEASE 12 HOUR active 1 tablet by mouth twice daily Ned Manacop GABAPENTIN 300 MG ORAL CAPSULE active 1 capsule by mouth three times daily Ned Lermaacomatthew TIZANIDINE HCL 4 MG ORAL TABLET active 1 tablet by mouth three times daily Ned Manacop COPAXONE 20 MG/ML KIT active daily injection Ned Hirsch SOCIAL HISTORY Date Observation Value Provider social history reviewed E&M reviewed Mani Paez RN smoking status never Vivian Gutierrez social history E&M Marital Statu s: L brennan with family/friends E thnicity: , Jamarcus Eng MD drug use none Jamarcus Eng MD social history reviewed E&M reviewed Jamarcus Eng MD physical exercise, f requency, days per week yes [employer] caffeine use, averag e drinks per day yes [employer] alcohol use, average drinks per day social basis only [employer] smoking status Non-smoker [employer] FUNCTIONAL STATUS Date Observation Value Provider periodic limb movement index absent (0) Jesse Do MD MENTAL STATUS Date Observation Value Provider assessment of judgme nt and insight E&M Alert and oriented to time, place and person. Mood and affect are normal. Mani Paez RN assessment of judgme nt and insight E&M Alert and oriented to time, place and person. Mood and affect are normal. Jamarcus Eng MD INSURANCE PROVIDERS Payer name Policy type / Coverage type Giuseppe red libertarian ID [id number] HMO Other [id number]
--- OUTSIDE RECORDS SUMMARY | 2024-07-23 16:37 | XMS_ITS | Referral Summary ---
Author Organization [facility] Address [address] [place] [address] Care Team Providers Care Professor Of Pathology Name Role Phone Anil Escoto MD Primary Care Provider [phone] Encounters Date Type Department Care Team Description 07/23/2024 3:57 PM CDT - Present Emergency [facility] Emergency Department [address] [place] [id number] Justo Mello, DO from Last 3 Months Allergies Active Allergy Reactions Criticality Noted Date [...] 07/09/2021 Assessment & Plan (07/09/2021 1:49 PM PIPE JEEPER): Stable, but she has had chest discomfort and palpitations, and has some cardiac risk factors. I recommended a stress echo to re-evaluate left ventricular function and rule out any significant ischemia. Further recommendations will await these results. I made no change in her medical regimen today. I advised her to diet and exercise regularly. Hypercholesteremia 07/09/2021 Assessment & Plan (07/09/2021 1:50 PM PIPE JEEPER): Lipids are well controlled in the absence of vascular disease. Continue diet and exercise. VT (ventricular tachycardia) 07/08/2021 Assessment & Plan (07/09/2021 1:50 PM PIPE JEEPER): Stable, brief nonsustained VT with normal left ventricular function, asymptomatic. Continue same therapy. Acid reflux 06/26/2021 Migraine 06/26/2021 Overview (06/26/2021): Updating IMO/ICD9 Code and Description Palpitations 06/26/2021 Assessment & Plan (07/09/2021 1:49 PM PIPE JEEPER): As above, stress echo will be obtained, [...] (CMS/HCC) 11/27/2008 Overview (06/26/2021): MS (multiple sclerosis) Immunizations Immunization Administration Dates Next Due Influenza, Unspecified 07/03/2015 Pfizer SARS-CoV-2 Monovalent Vaccination (12+ Yrs) PURPLE 11/23/2020 Social History Tobacco Use Types Packs/Day Years [...] on file Legal Sex Female 1:15 PM PIPE JEEPER Gender Identity Female 02/29/2020 6:35 AM CDT Sexual Orientation Straight 02/29/2020 6: 35 AM CDT Occupation Industry Job Start Date Job End Date Disabled Not on file Not on file Not on file Last Filed Vital Signs Vital Sign [place] [...] 11/28/2023 2:50 PM CDT Plan of Treatment Not on file Procedures * The patient is currently admitted. [...] was last reviewed 2021. Testing performed by: [address] [address] Blood 07/23/2024 3:55 PM CDT 07/23/2024 4:02 PM CDT us Makayla COFFMAN LAB BLOOD ORDERABLES Final Resu lt [facility] [address] [place] [address] Department [place] [address] * (ABNORMAL) Differential, auto (07/23/2024 3:55 PM CDT) Neutrophil abs 6.2 1.5 - 6.5 K/cumm Comment:Testing performed by : [address] [address] Imm gran abs 0.0 0.0 - 0.1 K/cumm [facility] Comment:Testing performed by : [address] [address] Lymphocyte abs 0.2(L) 0.8 - 3.3 K/cumm [facility] Comment:Testing performed by : [address] [address] Monocyte abs 0.4 0.2 - 0.8 K/cumm [facility] Comment:Testing performed by : [address] [address] Eosinophil abs 0.0 0.0 - 0.5 K/cumm [facility] Comment:Testing performed by : [address] [place]., [address] Basophil abs 0.1 0.0 - 0.1 K/cumm [facility] Comment:Testing performed by : [address] [address] Neutrophil pct 90.4 % [facility] Comment: Interpretive Data Percent cell count reference ranges are not reported, since discordance with absolute values may lead to misinterpretation of CBC data. Current Interpretive Data was last revised on 2017. Testing performed by: [address] [address] Imm gran pct 0.3 % [facility] Comment: Interpretive Data Percent cell count reference ranges are not reported, since discordance with absolute values may lead to misinterpretation of CBC data. Current Interpretive Data was last revised on 2017. Testing performed by: [address] [address] Lymphocyte pct 3.1 % [facility] Comment: Interpretive Data Percent cell count reference ranges are not reported, since discordance with absolute values may lead to misinterpretation of CBC data. Current Interpretive Data was last revised on 2017. Testing performed by: [address] [address] Monocyte pct 5.1 % [facility] Comment: Interpretive Data Percent cell count reference ranges are not reported, since discordance with absolute values may lead to misinterpretation of CBC data. Current Interpretive Data was last revised on 2017. Testing performed by: [address] [address] Eosinophil pct 0.4 % [facility] Comment: Interpretive Data Percent cell count reference ranges are not reported, since discordance with absolute values may lead to misinterpretation of CBC data. Current Interpretive Data was last revised on 2017. Testing performed by: [address] [address] Basophil pct 0.7 % [facility] Comment: Interpretive Data Percent cell count reference ranges are not reported, since discordance with absolute values may lead to misinterpretation of CBC data. Current Interpretive Data was last revised on 2017. Testing performed by: [address] [address] Blood 07/23/2024 3:55 PM CDT 07/23/2024 4:02 PM CDT Makayla COFFMAN LAB BLOOD ORDERABLES Final Resu lt [facility] [address] [facility] Department [place] [address] * (ABNORMAL) Urinalysis reflex to microscopic and culture Urine (07/23/2024 3:55 PM CDT) Color, ur Yellow Yellow Comment:Testing performed by : [address] [address] Clarity, ur Clear Clear [facility] Comment:Testing performed by : [address] [address] Specific gravity, ur 1.016 1.003 - 1.030 [facility] Comment:Testing performed by : [address] [address] pH, urine 8.0 [facility] Comment: Interpretive Data U rine pH is affected by diet, medications, systemic acid-base disturbances, and renal tubular function. pH may affect urinary stone formation. For example, urine pH below 6.0 may help reduce the tendency for calcium phosphate stones and pH greater than 6.0 may reduce the tendency for uric acid stone formation. Source: [facility] [place] Current Interpretive Data was last revised on 2017 Testing performed by: [address] [address] Protein, ur ql Negative Negative [facility] Comment:Testing performed by : [address] [address] Glucose, ur ql Negative Negative [facility] Comment:Testing performed by : [address] [address] Ketones, ur 1+(A) Negative [facility] Comment:Testing performed by : [address] [address] Bilirubin, ur Negative Negative [facility] Comment:Testing performed by : [address] [address] Blood, ur 1+(A) Negative [facility] Comment:Testing performed by : [address] [address] Urobilinogen, ur <2.0 <2.0 mg/dL [facility] Comment:Testing performed by : [address] [address] Nitrite, ur Negative Negative [facility] Comment:Testing performed by : [address] [address] Leukocyte esterase, ur 1+(A) Negative [facility] Comment:Testing performed by : [address] [address] UA reflex comment Reflex to microscopic UA will be performed. [facility] Comment:Testing performed by : [address] [address] Urine 07/23/2024 3:55 PM CDT 07/23/2024 4:02 PM CDT Justo Mello DO LAB MICROBIOLOGY - GENERAL ORDERABLES Final Result [facility] [address] [facility] Department [place] [address] * CBC with auto differential (07/23/2024 3:55 PM CDT) WBC 6.9 3.8 - 9.9 K/cumm Comment:Testing performed by : [address] [address] Hgb 13.6 11.9 - 15.5 g/dL [facility] Comment:Testing performed by : [address] [address] Hct 40.6 35.6 - 45.5 % [facility] Comment:Testing performed by : [address] [address] Plt 238 150 - 400 K/cumm [facility] Comment:Testing performed by : [address] [address] MPV 9.1 9.1 - 12.3 fL [facility] Comment:Testing performed by : [address] [address] RBC 4.70 3.90 - 5.20 M/cumm [facility] Comment:Testing performed by : [address] [address] MCV 86.4 81.3 - 96.4 fL [facility] Comment:Testing performed by : [address] [address] MCH 28.9 27.1 - 33.3 pg [facility] Comment:Testing performed by : [address] [address] MCHC 33.5 32.3 - 35.7 g/dL [facility] Comment:Testing performed by : [address] [address] RDW CV 12.0 11.1 - 14.9 % [facility] Comment:Testing performed by : [address] [address] RDW SD 38.3 35.7 - 48.1 fL [facility] Comment:Testing performed by : [address] [address] NRBC abs 0.00 0.00 - 0.01 K/cumm [facility] Comment:Testing performed by : [address] [address] Blood Venous blood specimen / Unknown 07/23/2024 3:55 PM CDT 07/23/2024 4:02 PM CDT Justo Mello DO LAB BLOOD ORDERABLES Final Result [facility] [address] [facility] Department [place] [address] * (ABNORMAL) Urinalysis, microscopic only (07/23/2024 3:55 PM CDT) WBC, ur 0-5 0 - 5 /HPF Comment:Testing performed by : [address] [address] RBC, ur 21-50(A) 0 - 2 /HPF [facility] Comment:Testing performed by : [address] [address] Epithelial cells, squamous, ur 11-20(A) 0 - 5 /HPF [facility] Comment:Testing performed by : [address] [address] Culture Reflex Comment Reflex conditions for urine culture (WBC >10) not met. [facility] Comment:Testing performed by : [address], [address] Urine 07/23/2024 3:55 PM CDT 07/23/2024 4:02 PM CDT Makayla COFFMAN LAB URINE ORDERABLES Final Resu lt Performing Organization Address [facility]/ZIP Co de Phone Number [address] [place] [address] * Lipase (07/23/2024 3:55 PM CDT) [facility] Lipase 17 10 - 99 Units/L Comment:Testing performed by : [address], [address] Blood Venous blood specimen / Unknown 07/23/2024 3:55 PM CDT 07/23/2024 4:02 PM CDT Justo Mello DO LAB BLOOD ORDERABLES Final Result Performing Organization Address City/[facility] Co de Phone Number [address] [address] * (ABNORMAL) Comprehensive metabolic panel (07/23/2024 3:55 PM CDT) [facility] Sodium 134(L) 135 - 145 mmol/L Comment:Testing performed by : [address] [address] Potassium, pl 3.7 3.3 - 4.9 mmol/L [facility] Comment: Hemolyzed; Potassium value may be falsely elevated by as much as 1.0 mmol/L. Suggest redraw and reanalysis. Testing performed by: [address] [address] Chloride 98 97 - 110 mmol/L [facility] Comment:Testing performed by : [address], [place]., [address] CO2 25 22 - 32 mmol/L [facility] Comment:Testing performed by : [address], [place]., [address] Anion gap 11 2 - 15 mmol/L [facility] Comment:Testing performed by : [address], [place]., [address] BUN 10 6 - 25 mg/dL [facility] Comment:Testing performed by : [address], [place]., [address] Creatinine 0.72 0.60 - 1.10 mg/dL [facility] Comment:Testing performed by : [address] [address] Glucose 111 70 - 199 mg/dL [facility] Comment: Interpretive Data Fasting glucose >/= 126 [...] was last revised 2022. Testing performed by: [address] [address] Calcium 9.8 8.5 - 10.3 mg/dL [facility] Comment:Testing performed by : [address] [address] Bilirubin, total 0.8 0.1 - 1.2 mg/dL [facility] Comment:Testing performed by : [address], [place]., [address] Protein, pl 7.9 6.5 - 8.5 g/dL [facility] Comment:Testing performed by : [facility], [address] [place] [address]., [address] Albumin 4.5 3.5 - 5.0 g/dL [facility] Comment:Testing performed by : [address] [address] Alk phos 95 40 - 130 Units/L [facility] Comment:Testing performed by : [address] [address] ALT 21 7 - 45 Units/L [facility] Comment:Testing performed by : [address] [address] AST 29 10 - 45 Units/L [facility] Comment: Hemolyzed; result may be falsely elevated Testing performed by: [address] [address] Blood 07/23/2024 3:55 PM CDT 07/23/2024 4:02 PM CDT Justo Mello DO LAB BLOOD ORDERABLES Final Result [facility] [address] [facility] Department [place] [address] from Last 3 Months Additional Health Concerns Infection Onset Date Last Indicated Resolved Time COVID: Suspected 07/23/2024 07/23/2024 Insurance [employer] MEDICARE GOLD [facility] ADVANTAGE CHOICE PPO [employer] MED[employer]ARE GOLD [employer] ADVANTAGE CHOICE PPO Advance Directives For more information, please contact: [phone] Documents on File Type Date Recorded Patient [employer] anation Power of Hospital Nurse 11/25/2020 6:07 AM Care Teams Professor Of Pathology Relationship Specialty Start Date End Date Anil Escoto MD [facility] - General 08/06/16
--- OUTSIDE RECORDS SUMMARY | 2024-07-23 16:38 | XMS_ITS | Clinical Summary ---
Author Organization [facility] Address [address] [place] [address] Care Team Providers Care Structural Analyst Name Role Phone Anil Escoto MD Primary Care Provider [phone] Ludmila Howe MD Unavailable [phone] Daiana Vail MD Unavailable [phone] Source Comments [facility],non-owned Affiliates and Associated Physician Practices is amultiple site organization consisting of ambulatory clinics and hospital sitesin [place], [place], [place]. This disclosure is being madepursuant to the Care Everywhere program and may not contain all information available regarding this patient. Last updated 18.[facility] Allergies Active Allergy Reactions Criticality Noted Date Comments Propoxyphene N-Apap Unknown,Headache,Na usea and/or Vomiting Low 03/30/2011 Baclofen Other,Dizziness,Unk nown High 11/20/2008 Acid reflux Bupropion Other,Palpitations, Unknown Low 03/30/2011 Buspirone Psychiatric,Dizzine High 11/20/2008 Cefuroxime Dizziness,Nausea and/or Vomiting High 11/20/2008 Duloxetine Dizziness,Other,Unk nown High 11/20/2008 Escitalopram Other,Unknown High 11/20/2008 Tremors and insomnia Hydrocodone Dizziness,Psychiatr ic,Nausea and/or Vomiting,Palpitatio ns Medium 09/29/2009 Hydrocodone-Acetaminophe n Psychiatric,Unknown ,Palpitations High 11/20/2008 Meloxicam Psychiatric,Headach e,Nausea and/or Vomiting Medium 01/07/2017 Migraine Modafinil Psychiatric,Other,U nknown High 11/20/2008 Nitrofurantoin Unknown 10/14/2017 Nortriptyline Other,Palpitations High 11/20/2008 migraine could not function , acid reflux Pregabalin Other,Unknown High 11/20/2008 Lowers blood platelets Rabeprazole Unknown,Other High 11/20/2008 Made acid reflux worse Tetracycline Headache,Urticaria High 11/20/2008 Bad migraines Topiramate Psychiatric,Palpita tions,Unknown High 11/20/2008 Tramadol Headache,Other,Naus ea and/or Vomiting,Dizziness, Unknown High 11/20/2008 Venlafaxine Other,Psychiatric,U nknown High 11/20/2008 Medications * Be aware that medications may not be up to date on this document. Alwaysverify current medications with the patient. Medication Sig Dispensed Refills Start Date End Date Status ZOLMitriptan (Zomig) 2.5 MG tablet Active ondansetron (Zofran) 4 MG tablet TAKE 1 TABLET BY MOUTH EVERY 8 HOURS NEEDED FOR NAUSEA OR VOMITING 06/22/2021 Active gabapentin (Neurontin) 600 MG tablet Take 1 (one) tablet by mouth 3 times daily 09/04/2021 Active aspirin EC (Ecotrin) 81 MG tablet Take 1 (one) tablet by mouth once daily Active tiZANidine (Zanaflex) 2 MG tablet TAKE 1 TABLET(2 MG) BY MOUTH EVERY 8 HOURS 03/18/2023 Active hydroxychloroquine (Plaquenil) 200 MG tablet Take 0.5 (one-half) tablet by mouth once daily 3 times a week Active Active Problems Patient Care Coordination No te Formatting of this note migh t be different from the original. Primary Care Provider: Anil Escoto MD [address] [place] [address] Referring Provider: [place] [address] [facility] patient reestablish care 01/12/2022 No known active problems Family History Medical History Relation Name Comments Breast Biopsy Mother Martha Mendoza Benign Fibercy sts Breast Biopsy Sister Carol Oshea Benign Fibrecy sts Relation Name Status Comments Mother Martha Mendoza Sister Carol Oshea Social History Tobacco Use Types Packs/Day Years Used Date Smoking Tobacco: Never Smokeless Tobacco: Never Tobacco Cessation:Counseling Given: Not Answered Alcohol Use Standard Drinks/Week Comments Not Currently 0 (1 standard drink = 0.6 oz pur e alcohol) Sex and Gender Information Value Date Recorded Sex Assigned at Female 03/03/2022 7:59 PM CDT Gender Identity Female 03/03/2022 7:59 PM CDT Sexual Orientation Straight 03/03/2022 7: 59 PM CDT Last Filed Vital Signs Vital Sign Reading Time Taken Comments Blood Pressure 116/48 03/30/2024 10:10 AM FURNITURE CRATER Pulse 66 03/30/2024 10:10 AM FURNITURE CRATER Temperature 36.8 C (98.2 F) 03/30/2024 10:10 AM FURNITURE CRATER Respiratory Rate - - Oxygen Saturation - - Inhaled Oxygen Concentration - - Weight 81.1 kg (178 lb 12.8 oz) 024 10:10 AM FURNITURE CRATER Height 158.8 cm (5' 2.5 ) 03/30/2024 10 :10 AM FURNITURE CRATER Body Mass Index 32.18 03/30/2024 10:10 AM FURNITURE CRATER Plan of Treatment Upcoming Encounters Date Type Department Care Team (Late st Contact Info) Description 09/26/2024 1:00 PM CDT Appointment [facility] - Ultrasound [address] [facility] [address] [place] [address] 04/02/2025 11:00 AM FURNITURE CRATER Appointment [facility] [address] [place] [address] [address] [place] [address] 04/02/2025 11:30 AM FURNITURE CRATER Office Visit [facility] - Surgery [address] [place] [address], [address] [place] [address] Ludmila Howe MD [address] [place], [place] [address] [place] [id number] Health Maintenance Due Date Last Done Comments COLOGUARD (AGES 45-75) - [place] CA SCREENING 1965 COLON MONITORING 1965 COLONOSCOPY - [place] CA SCREENING 1965 CT COLONOGRAPHY - [place] CA SCREENING 1965 Colorectal Cancer Screening 1965 FIT - [place] CA SCREENING 1965 FLEX SIG - [place] CA SCREENING 1965 LIPID TESTING 1965 PAP SMEAR 1965 HIV SCREENING 1980 HEPATITIS C SCREENING 08/29/1983 DTAP/TDAP/TD VACCINES (1 - Tdap) 1984 HEPATITIS B VACCINE (1 of 3 - 19+ 3-dose series) 1984 PNEUMOCOCCAL VACCINE 50+ (1 of 1 - PCV) 09/03/2015 ZOSTER VACCINE (1 of 2) 09/03/2015 SCREENING FOR DIABETES 03/25/2023 COVID-19 VACCINE (4 - season) 2024 08/02/2021, 12/14/2020, 11/23/2020 INFLUENZA VACCINE (#1) 2024 07/03/2015 DEPRESSION SCREENING 05/09/2024 MEDICARE AWV CALENDAR YEAR 2024 MAMMOGRAM 03/30/2026 03/30/2024, 03/09, 03/25/2023, Additional history exists HIB VACCINE Aged Out No longer eligi ble based on patient's age to complete this topic HPV VACCINE Aged Out No longer eligi ble based on patient's age to complete this topic MENINGOCOCCAL (Group B) VACCINE SHARED DECISION-MAKING Aged Out No longer eligible based on patient's age to complete this topic MENINGOCOCCAL GROUPS A/C/Y/W VACCINE Aged Out No longer eligible based on patient's age to complete this topic Procedures Procedure Name Priority Date/Time Associated Diagnosis Comments MAMMO BILAT SCREENING W MARQUIS Routine 03/30/2024 9:22 AM FURNITURE CRATER Screening mammogram for breast cancer from Last 3 Months or Most Recently Relevant to Health Maintenance Results * MAMMO BILAT SCREENING W MARQUIS (03/30/2024 9:22 AM FURNITURE CRATER) Anatomical Region Laterality Modality Breast Bilateral Mammography 03/30/2024 9:58 AM FURNITURE CRATER Impressions 03/30/2024 9:59 AM FURNITURE CRATER IMPRESSION: Annual screening mammography is recommended. OVERALL FINAL ASSESSMENT: BI-RADS Category 1: Negative. > Interpreting Provider: Cara Arroyo MD on 03/30/2024 9:59 AM Narrative 03/30/2024 9:59 AM FURNITURE CRATER EXAMINATION: BILATERAL DIGITAL SCREENING MAMMOGRAM AND BILATERAL BREAST TOMOSYNTHESIS HISTORY: Screening. COMPARISON: Serial examinations dating back to 06/22/2019 TECHNIQUE: BILATERAL digital breast tomosynthesis (DBT) and synthetic 2D digital mammogram images were obtained (bilateral craniocaudal and mediolateral oblique projections) including computer aided detection (CAD.) BREAST PARENCHYMAL COMPOSITION: Category C: The breasts are heterogeneously dense which may obscure small masses. MAMMOGRAM FINDINGS: There is no suspicious finding in either breast. Overall, there has been no significant interval change. Ludmila Howe MD MAMMO ORDERABLES from Last 3 Months or Most Recently Relevant to Health Maintenance Care Teams Structural Analyst Relationship Specialty Start Date End Date Anil Escoto MD [address] [place] [address] PCP - General Family Medicine 01/01/22 Ludmila Howe MD [address] [place] [address] Surgeon Surgical Oncology 01/01/22 Daiana Vail MD [address] [place] [id number] Obstetrics and Gynecology 01/01/22
--- OUTSIDE RECORDS SUMMARY | 2024-07-23 16:38 | XMS_ITS | CONTINUITY OF CARE DOCUMENT ---
Author Name angelique hemabuster Address Unknown Organization [facility] Address [address] [facility] [address] [place] [address] Phone [phone] Care Team Providers Care Radio Intelligence Operator Name Role Phone Jamarcus Eng MD Unavailable [phone] CAROLYN RAMIRES, YANNA F Unavailable CAROLYN RAMIRES, YANNA F Unavailable [phone] PROBLEMS Condition Status Date Provider Notes PALPITATIONS-11/14 HOLTER SR [id number] active ? J julianna Paez RN MULTIPLE SCLEROSIS active Jamarcus Eng MD ENCOUNTERS Date Type Provider Location Encounter Diagnosis - In-person encounter Office Visit Jamarcus Eng MD [place] [facility] - In-person encounter Office Visit Jamarcus Eng MD [place] [facility] PALPITATIONS-11/14 [address] [id number] SCLEROSIS VITAL [...] Ned Manacop respiratory rate E&M 16 /min Ned Man[place] blood pressure, diastolic 74 mm[Hg] Rosemarie seph [place] blood pressure, systolic 120 mm[Hg] Garrett eph [place] weight E&M 175 [lb_av] [facility] ALLERGIES Allergy Name Onset Date Reaction Criticality [...] Policy type / Coverage type Giuseppe red democrat ID [employer] HMO Other [id number]
--- OUTSIDE RECORDS SUMMARY | 2024-07-23 16:38 | XMS_ITS | Patient Health Summary ---
Author Organization [facility] Address [address] [facility] [place] [address] Care Team Providers Care Ground Service Equipment Mechanic Name Role Phone Anil Escoto MD Primary Care Provider [phone] Ludmila Howe MD Unavailable [phone] Daiana Vail MD Unavailable [phone] Note from [facility],non-owned Affiliates and Associated Physician Practices is amultiple site organization consisting of ambulatory clinics and hospital sitesin [place], [place], [place]. This disclosure is being madepursuant to the Care Everywhere program and may not contain all information available regarding this patient. Last updated 18.[facility] Allergies * Propoxyphene N-Apap(Unknown,Headache,Nausea and/or Vomiting) -Low Criticality * Baclofen(Other,Dizziness,Unknown) -High Criticality * Bupropion(Other,Palpitations,Unknown) -Low Criticality * Buspirone(Psychiatric,Dizziness) -High Criticality * Cefuroxime(Dizziness,Nausea and/or Vomiting) -High Criticality * Duloxetine(Dizziness,Other,Unknown) -High Criticality * Escitalopram(Other,Unknown) -High Criticality * Hydrocodone(Dizziness,Psychiatric,Nausea and/or Vomiting,Palpitations) -Medium Criticality * Hydrocodone-Acetaminophen(Psychiatric,Unknown,Palpitations) -High Criticality * Meloxicam(Psychiatric,Headache,Nausea and/or Vomiting) -Medium Criticality * Modafinil(Psychiatric,Other,Unknown) -High Criticality * Nitrofurantoin(Unknown) * Nortriptyline(Other,Palpitations) -High Criticality * Pregabalin(Other,Unknown) -High Criticality * Rabeprazole(Unknown,Other) -High Criticality * Tetracycline(Headache,Urticaria) -High Criticality * Topiramate(Psychiatric,Palpitations,Unknown) -High Criticality * Tramadol(Headache,Other,Nausea and/or Vomiting,Dizziness,Unknown) -High Criticality * Venlafaxine(Other,Psychiatric,Unknown) -High Criticality Medications * Be aware that medications may not be up to date on this document. Alwaysverify current medications with the patient. * ZOLMitriptan (Zomig) 2.5 MG tablet * ondansetron (Zofran) 4 MG tablet(Started 06/22/2021) TAKE 1 TABLET BY MOUTH EVERY 8 HOURS NEEDED FOR NAUSEA OR VOMITING * gabapentin (Neurontin) 600 MG tablet(Started 09/04/2021) Take 1 (one) tablet by mouth 3 times daily * aspirin EC (Ecotrin) 81 MG tablet Take 1 (one) tablet by mouth once daily * tiZANidine (Zanaflex) 2 MG tablet(Started 03/18/2023) TAKE 1 TABLET(2 MG) BY MOUTH EVERY 8 HOURS * hydroxychloroquine (Plaquenil) 200 MG tablet Take 0.5 (one-half) tablet by mouth once daily 3 times a week Active Problems No known active problems Social History Tobacco Use Types Packs/Day Years [...] Comments Blood Pressure 116/48 03/30/2024 10:10 AM MISSILE AND MISSILE CHECKOUT TECHNICIAN Pulse 66 03/30/2024 10:10 AM MISSILE AND MISSILE CHECKOUT TECHNICIAN Temperature 36.8 C (98.2 F) 03/30/2024 10:10 AM MISSILE AND MISSILE CHECKOUT TECHNICIAN Respiratory Rate - - Oxygen Saturation - - Inhaled Oxygen Concentration - - Weight 81.1 kg (178 lb 12.8 oz) 024 10:10 AM MISSILE AND MISSILE CHECKOUT TECHNICIAN Height 158.8 cm (5' 2.5 ) 03/30/2024 10 :10 AM MISSILE AND MISSILE CHECKOUT TECHNICIAN Body Mass Index 32.18 03/30/2024 10:10 AM MISSILE AND MISSILE CHECKOUT TECHNICIAN Procedures * MAMMO BILAT SCREENING W MARQUIS(Performed 03/30/2024) Performed for Screening mammogram for breast cancer * US BREAST BILATERAL COMPLETE(Performed 09/22/2023) Performed for Extremely dense tissue of both breasts on mammography * MAMMO BILAT SCREENING W MARQUIS(Performed 03/25/2023) Performed for Encounter for mammogram to establish baseline mammogram * US BREAST BILATERAL COMPLETE(Performed 07/16/2022) Performed for Dense breast tissue, Breast cancer screening, high risk patient * MAMMO BILAT SCREENING W MARQUIS(Performed 01/12/2022) Performed for Fibrocystic breast disease (FCBD), unspecified laterality Results * MAMMO BILAT SCREENING W MARQUIS (03/30/2024 9:22 AM MISSILE AND MISSILE CHECKOUT TECHNICIAN) Only the most recent of3 resultswithin the time period is included. Anatomical Region Laterality Modality Breast Bilateral Mammography 03/30/2024 9:58 AM MISSILE AND MISSILE CHECKOUT TECHNICIAN Impressions 03/30/2024 9:59 AM MISSILE AND MISSILE CHECKOUT TECHNICIAN IMPRESSION: Annual screening mammography is recommended. OVERALL FINAL ASSESSMENT: BI-RADS Category 1: Negative. > Interpreting Provider: Cara Arroyo MD on 03/30/2024 9:59 AM Narrative 03/30/2024 9:59 AM MISSILE AND MISSILE CHECKOUT TECHNICIAN EXAMINATION: BILATERAL DIGITAL SCREENING MAMMOGRAM AND BILATERAL [...] interval change. Ludmila Howe MD MAMMO ORDERABLES * US BREAST BILATERAL COMPLETE( whole breast including axilla and retroareaolar region) (09/22/2023 1:38 PM CDT) Only the most recent of2 resultswithin the time period is included. Anatomical Region Laterality Modality Breast Bilateral Ultrasound 09/22/2023 1:59 PM CDT Impressions 09/22/2023 2:02 PM CDT : No sonographic evidence of malignancy in either breast. ASSESSMENT:BI-RADS CATEGORY 2: BENIGN. RECOMMENDATION: Bilateral whole breast ultrasound in one year. Continued annual screening mammography is also recommended which will be due in March 2024. > Interpreting Provider: Calos Mckeon MD on 09/22/2023 2:02 PM Narrative 09/22/2023 2:02 PM CDT EXAMINATION: Bilateral whole breast ultrasound on 01/10/2018. PRIOR: July 16, 2022. HISTORY: 58 year-old asymptomatic woman with dense breast tissue presents for supplemental screening with bilateral complete breast ultrasound. FINDINGS: Ultrasound was performed in all four quadrants and subareolar regions of both breasts and both axilla by the international manager. No suspicious mass is seen in either breast. Again seen are unchanged bilateral scattered benign cysts. There is no axillary adenopathy. Ludmila Howe MD US ORDERABLES Care Teams Ground Service Equipment Mechanic Relationship Specialty Start Date End Date Anil Escoto MD [address] [place] [address] PCP - General Family Medicine 01/01/22 Ludmila Howe MD [address] [place] [id number] Surgeon Surgical Oncology 01/01/22 Daiana Vail MD [address] [facility] [address] [place] [address] [phone] (work) Obstetrics and Gynecology 01/01/22
--- OUTSIDE RECORDS SUMMARY | 2024-07-23 16:38 | XMS_ITS | Encounter Summary ---
Author Organization [facility] Healthcare Address [address] [place] [address] Care Team Providers Care Payroll Manager Name Role Phone Anil Escoto MD Primary Care Provider Reason for Visit * Reason Comments Flank Pain Encounter Details Date Type Department Care Team (Late st Contact Info) Description 07/23/2024 3:57 PM CDT - Present Emergency [facility] Emergency Department [address] [place] [address] Justo Mello, DO [address] [place] [address] Social History Tobacco Use Types Packs/Day Years Used Date Smoking Tobacco: Never Smokeless Tobacco: Never Alcohol Use Standard Drinks/Week Comments Yes 0 [...] on file Legal Sex Female 1:15 PM [employer] Gender Identity Female 02/29/2020 6:35 AM CDT Sexual Orientation Straight 02/29/2020 6: 35 AM CDT Occupation Industry Job Start Date Job End Date Disabled Not on file Not on file Not on file documented as of this encounter Last Filed Vital Signs Vital Sign Reading Time Taken Comments Blood Pressure 128/68 07/23/2024 4:30 PM CDT Pulse 122 07/23/2024 4:30 PM CDT Temperature 38.6 C (101.5 F) 07/23/2024 3:32 PM CDT Respiratory Rate 26 07/23/2024 4:30 PM CDT Oxygen Saturation 93% 07/23/2024 4:30 PM CDT Inhaled Oxygen Concentration - - Weight 83.6 kg (184 lb 4.9 oz) 07/23/2024 3:32 P M CDT Height - - Body Mass Index 33.15 11/28/2023 2:50 PM CDT documented in this encounter ED Notes * Faviola Irizarry RN - 07/23/2024 4:10 PM CDT Pt comes from [facility] with sudden onset of mid /low back pain starting this AM. Had Urinae collected at and told it was OK . Pt tearful. Difficult to get comfortable. Skin pale/pink, W/D. Unaware of fever. St I didn't know I had a temp . Denies cough or SOB although tachypneic from the pain . 02/15 at present. Took Tylenol 500mg at 0900 for joint pains. C/o nausea. Denies V/D. Pt has Hx of MS, Lupus, Migraines, Factor V and many drug allergies. Faviola Irizarry RN 07/23/24 1637 * Ari Lebron RN - 07/23/2024 3:30 PM CDT Pt arrives complaining of bilateral back/flank pain. States she went to urgent care today and her urine wasn't too concerning This isnt pain I have ever had before and its so bad. Pt crying in pain in triage. Pt rocking uncomfortably. Pt reports a chills at home. documented in this encounter Plan of Treatment Pending Results Name Type Priority Associated Diagnoses Date /Time Sepsis Lactate w/ Reflex Lab STAT 07/23/2024 3:55 PM CDT Blood culture Blood Microbiology STAT 3:55 PM CDT Blood culture Blood Microbiology STAT 3:55 PM CDT Influenza A/B, RSV, and COVID-19 PCR Nasopharyngeal Microbiology STAT 07/23/2024 4:30 PM CDT Scheduled Orders Name Type Priority Associated Diagnoses Order Schedule Sepsis Lactate w/ Reflex Lab STAT STAT for 1 Occurrences starting 07/23/2024 until 07/23/2024 Blood culture Blood Microbiology STAT STA T for 1 Occurrences starting 07/23/2024 until 07/23/2024 Blood culture Blood Microbiology STAT STA T for 1 Occurrences starting 07/23/2024 until 07/23/2024 Influenza A/B, RSV, and COVID-19 PCR Nasopharyngeal Microbiology STAT STAT for 1 Occurrences starting 07/23/2024 until 07/23/2024 CT Chest PE (CTA) Abdomen Pelvis W Contrast Imaging ED Urgent/IP Urgent Once for 1 Occurrences starting 07/23/2024 until 07/23/2024 documented as of this encounter Procedures * The patient is currently admitted. The information in this section might not be complete until the patient is discharged. Procedure Name Priority Date/Time Associated Diagnosis Comments EGFR STAT 07/23/2024 3:55 PM CDT DIFFERENTIAL AUTO STAT 07/23/2024 3:5 5 PM CDT URINALYSIS AND REFLEX TO MICROSCOPIC AND CULTURE STAT 07/23/2024 3:55 PM CDT CBC WITH AUTO DIFFERENTIAL STAT 07/23/2024 3:55 PM CDT URINALYSIS, MICROSCOPIC ONLY STAT 07/23/2024 3:55 PM CDT LIPASE STAT 07/23/2024 3:55 PM CDT COMPREHENSIVE METABOLIC PANEL STAT 07/23/2024 3:55 PM CDT documented in this encounter Results * eGFR (07/23/2024 3:55 PM CDT) [...] of Race in Diagnosing Kidney Disease, JASN 2020). The CKD-EPI equation should not be used for patients with unstable renal function and has not been validated in children and those over 70. Current interpretive data was last reviewed 2021. Testing performed by: [address] [address] Blood 07/23/2024 3:55 PM CDT 07/23/2024 4:02 PM CDT us Makayla COFFMAN LAB BLOOD ORDERABLES Final Resu lt [facility] [address] [facility] Department [place] [address] * (ABNORMAL) Urinalysis, microscopic only (07/23/2024 3:55 PM CDT) WBC, ur 0-5 0 - 5 /HPF Comment:Testing performed by : [address] [address] RBC, ur 21-50(A) 0 - 2 /HPF [facility] Comment:Testing performed by : [address] [address] Epithelial cells, squamous, ur 11-20(A) 0 - 5 /HPF [facility] Comment:Testing performed by : [address] [address] Culture Reflex Comment Reflex conditions for urine culture (WBC >10) not met. [facility] Comment:Testing performed by : [address] [address] Urine 07/23/2024 3:55 PM CDT 07/23/2024 4:02 PM CDT us Makayla COFFMAN LAB URINE ORDERABLES Final Resu lt [facility] [address] [facility] Department [place] [address] * (ABNORMAL) Differential, auto (07/23/2024 3:55 PM CDT) Neutrophil abs 6.2 1.5 - 6.5 K/cumm Comment:Testing performed by : [address] [address] Imm gran abs 0.0 0.0 - 0.1 K/cumm [facility] Comment:Testing performed by : [address] [address] Lymphocyte abs 0.2(L) 0.8 - 3.3 K/cumm [facility] Comment:Testing performed by : [address] [address] Monocyte abs 0.4 0.2 - 0.8 K/cumm [facility] Comment:Testing performed by : [address] [address] Eosinophil abs 0.0 0.0 - 0.5 K/cumm [facility] Comment:Testing performed by : [address] [address] Basophil abs 0.1 0.0 - 0.1 K/cumm [facility] Comment:Testing performed by : [address] [address] Neutrophil pct 90.4 % [facility] Comment: Interpretive Data Percent cell count reference ranges are not reported, since discordance with absolute values may lead to misinterpretation of CBC data. Current Interpretive Data was last revised on 2017. Testing performed by: [address] [address] Imm gran pct 0.3 % [facility] Comment: Interpretive Data Percent cell count reference ranges are not reported, since discordance with absolute values may lead to misinterpretation of CBC data. Current Interpretive Data was last revised on 2017. Testing performed by: [address] [address] Lymphocyte pct 3.1 % [facility] Comment: Interpretive Data Percent cell count reference ranges are not reported, since discordance with absolute values may lead to misinterpretation of CBC data. Current Interpretive Data was last revised on 2017. Testing performed by: [address] [address] Monocyte pct 5.1 % [facility] Comment: Interpretive Data Percent cell count reference ranges are not reported, since discordance with absolute values may lead to misinterpretation of CBC data. Current Interpretive Data was last revised on 2017. Testing performed by: [address] [address] Eosinophil pct 0.4 % [facility] Comment: Interpretive Data Percent cell count reference ranges are not reported, since discordance with absolute values may lead to misinterpretation of CBC data. Current Interpretive Data was last revised on 2017. Testing performed by: [address] [address] Basophil pct 0.7 % [facility] Comment: Interpretive Data Percent cell count reference ranges are not reported, since discordance with absolute values may lead to misinterpretation of CBC data. Current Interpretive Data was last revised on 2017. Testing performed by: [address] [address] Blood 07/23/2024 3:55 PM CDT 07/23/2024 4:02 PM CDT Makayla COFFMAN LAB BLOOD ORDERABLES Final Resu lt [facility] [address] [facility] Department of Laboratories [place], [place] [id number] * (ABNORMAL) Urinalysis reflex to microscopic and culture Urine (07/23/2024 3:55 PM CDT) Color, ur Yellow Yellow Comment:Testing performed by : [address] [address] Clarity, ur Clear Clear [facility] Comment:Testing performed by : [address] [address] Specific gravity, ur 1.016 1.003 - 1.030 [facility] Comment:Testing performed by : [address] [address] pH, urine 8.0 [facility] Comment: Interpretive Data U rine pH is affected by diet, medications, systemic acid-base disturbances, and renal tubular function. pH may affect urinary stone formation. For example, urine pH below 6.0 may help reduce the tendency for calcium phosphate stones and pH greater than 6.0 may reduce the tendency for uric acid stone formation. Source: [facility] [employer] Current Interpretive Data was last revised on 2017 Testing performed by: [address] [address] Protein, ur ql Negative Negative [facility] Comment:Testing performed by : [address] [address] Glucose, ur ql Negative Negative [facility] Comment:Testing performed by : [address] [address] Ketones, ur 1+(A) Negative [facility] Comment:Testing performed by : [address] [address] Bilirubin, ur Negative Negative [facility] Comment:Testing performed by : [address] [address] Blood, ur 1+(A) Negative [facility] Comment:Testing performed by : [address] [address] Urobilinogen, ur <2.0 <2.0 mg/dL [facility] Comment:Testing performed by : [address] [address] Nitrite, ur Negative Negative [facility] Comment:Testing performed by : [address] [address] Leukocyte esterase, ur 1+(A) Negative [facility] Comment:Testing performed by : [address] [address] UA reflex comment Reflex to microscopic UA will be performed. [facility] Comment:Testing performed by : [address] [address] Urine 07/23/2024 3:55 PM CDT 07/23/2024 4:02 PM CDT Justo Mello LAB MICROBIOLOGY - GENERAL ORDERABLES Final Result Performing Organization Address [facility] Co de Phone Number [address] [place] [address] * Lipase (07/23/2024 3:55 PM CDT) [facility] Lipase 17 10 - 99 Units/L Comment:Testing performed by : [address] [address] Blood Venous blood specimen / Unknown 07/23/2024 3:55 PM CDT 07/23/2024 4:02 PM CDT Justo Mello LAB BLOOD ORDERABLES Final Result Performing Organization Address City/[facility] Co de Phone Number [address] [address] * (ABNORMAL) Comprehensive metabolic panel (07/23/2024 3:55 PM CDT) [facility] Sodium 134(L) 135 - 145 mmol/L Comment:Testing performed by : [address] [address] Potassium, pl 3.7 3.3 - 4.9 mmol/L [facility] Comment: Hemolyzed; Potassium value may be falsely elevated by as much as 1.0 mmol/L. Suggest redraw and reanalysis. Testing performed by: [address] [address] Chloride 98 97 - 110 mmol/L [facility] Comment:Testing performed by : [address], [place]., [address] CO2 25 22 - 32 mmol/L [facility] Comment:Testing performed by : [address], [place]., [address] Anion gap 11 2 - 15 mmol/L [facility] Comment:Testing performed by : [address], [place]., [address] BUN 10 6 - 25 mg/dL [facility] Comment:Testing performed by : [address] [address] Creatinine 0.72 0.60 - 1.10 mg/dL [facility] Comment:Testing performed by : [address] [address] Glucose 111 70 - 199 mg/dL [facility] [...] classification and Diagnosis of Diabetes Diabetes Care 2021; 46: S19-S40. Current interpretive data was last revised 2022. Testing performed by: [address] [address] Calcium 9.8 8.5 - 10.3 mg/dL [facility] Comment:Testing performed by : [address] [address] Bilirubin, total 0.8 0.1 - 1.2 mg/dL [facility] Comment:Testing performed by : [address] [address] Protein, pl 7.9 6.5 - 8.5 g/dL [facility] Comment:Testing performed by : [address] [address] Albumin 4.5 3.5 - 5.0 g/dL [facility] Comment:Testing performed by : [address] [address] Alk phos 95 40 - 130 Units/L [facility] Comment:Testing performed by : [address] [address] ALT 21 7 - 45 Units/L [facility] Comment:Testing performed by : [address] [address] AST 29 10 - 45 Units/L [facility] Comment: Hemolyzed; result may be falsely elevated Testing performed by: [address] [address] Blood 07/23/2024 3:55 PM CDT 07/23/2024 4:02 PM CDT Justo Mello LAB BLOOD ORDERABLES Final Result [facility] [address] [facility] Department [place] [address] * CBC with auto differential (07/23/2024 3:55 PM CDT) Pathologist [facility] WBC 6.9 3.8 - 9.9 K/cumm Comment:Testing performed by : [address] [address] Hgb 13.6 11.9 - 15.5 g/dL [facility] Comment:Testing performed by : [address] [address] Hct 40.6 35.6 - 45.5 % [facility] Comment:Testing performed by : [address] [address] Plt 238 150 - 400 K/cumm [facility] Comment:Testing performed by : [address] [address] MPV 9.1 9.1 - 12.3 fL [facility] Comment:Testing performed by : [address] [address] RBC 4.70 3.90 - 5.20 M/cumm [facility] Comment:Testing performed by : [address] [address] MCV 86.4 81.3 - 96.4 fL [facility] Comment:Testing performed by : [address] [address] MCH 28.9 27.1 - 33.3 pg [facility] Comment:Testing performed by : [address], [address] MCHC 33.5 32.3 - 35.7 g/dL [facility] Comment:Testing performed by : [address], [address] RDW CV 12.0 11.1 - 14.9 % [facility] Comment:Testing performed by : [address], [address] RDW SD 38.3 35.7 - 48.1 fL [facility] Comment:Testing performed by : [address], [address] NRBC abs 0.00 0.00 - 0.01 K/cumm [facility] Comment:Testing performed by : [address] [address] Blood Venous blood specimen / Unknown 07/23/2024 3:55 PM CDT 07/23/2024 4:02 PM CDT Justo Mello DO LAB BLOOD ORDERABLES Final Result [facility] [address] [facility] Department of Laboratories [place], [place] [id number] documented in this encounter Visit Diagnoses Not on filedocumented in this encounter Administered Medications Inactive Administered Medications - up to 3 most recent administrations Medication Order MAR Action Action Date Dose Rate Site cefTRIAXone (ROCEPHIN) 2,000 mg/20 mL in sterile water (premix) 2,000 mg 2,000 mg, intravenous, at 240 mL/hr, Administer over 5 Minutes, Once, On Tue07/23/24 at 1545, For 1 dose, Indications: Urinary Tract/Genitourinary InfectionIndications:Uri nary Tract/Genitourinary Infection Given 07/23/2024 4:27 PM CDT 2,000 mg 240 mL/hr ketorolac (TORADOL) 30 mg/mL injection 15 mg 15 mg, intravenous, Once, On Tue07/23/24 at 1604, For 1 dose, For Adult IV push, administer over 15 seconds Given 07/23/2024 4:21 PM CDT 15 mg ondansetron (ZOFRAN) injection 4 mg 4 mg, intravenous, Administer over 2 Minutes, Once, On Tue07/23/24 at 1545, For 1 dose Given 07/23/2024 4:20 PM CDT 4 mg sodium chloride 0.9% bolus 1,000 mL 1,000 mL, intravenous, Once, On Tue07/23/24 at 1541, For 1 dose New Bag 07/23/2024 4:18 PM CDT 1,000 mL Right Hand documented in this encounter Active and Recently Administered Medications Times are shown in CDT. Scheduled Medication Order 07/21/2024 07/22/2024 07/23/2024 cefTRIAXone (ROCEPHIN) 2,000 mg/20 mL in sterile water (premix) 2,000 mg (COMPLETED) 2,000 mg, intravenous, at 240 mL/hr, Administer over 5 Minutes, Once, On Tue07/23/24 at 1545, For 1 dose, Indications: Urinary Tract/Genitourinary Infection 1627 (Given - Provid er: Faviola Irizarry RN) ketorolac (TORADOL) 30 mg/mL injection 15 mg (COMPLETED) 15 mg, intravenous, Once, On Tue07/23/24 at 1604, For 1 dose, For Adult IV push, administer over 15 seconds 1621 (Given - Provid er: Faviola Irizarry RN) Lactated Ringer's (LR) bolus 1,000 mL 1,000 mL, intravenous, Once, On Tue07/23/24 at 1604, For 1 dose 1604 (Due) ondansetron (ZOFRAN) injection 4 mg (COMPLETED) 4 mg, intravenous, Administer over 2 Minutes, Once, On Tue07/23/24 at 1545, For 1 dose 1620 (Given - Provid er: Faviola Irizarry, GIANLUCA) sodium chloride 0.9% bolus 1,000 mL (COMPLETED) 1,000 mL, intravenous, Once, On 07/23/24 at 1541, For 1 dose 1618 (New Bag - Prov ider: Faviola Irizarry, GIANLUCA) documented in this encounter Orders Medications Ordered That Ronen ht Not Have Been Administered Count Last Ordered Date First Ordered Date ketorolac (TORADOL) 30 mg/mL injection 15 mg 1 07/23/2024 Lactated Ringer's (LR) bolus 1,000 mL 1 EKG Orders Without Results Count Last Ordered D ate First Ordered Date ECG 12-LEAD 1 07/23/2024 Nursing Count Last Ordered Date First Orde red Date MISCELLANEOUS NURSING CARE ORDER (SPECIFY) 2 07/23/2024 IV Count Last Ordered Date First Orde red Date SALINE LOCK IV 1 07/23/2024 documented in this encounter Additional Health Concerns Infection Onset Date Last Indicated Resolved Time COVID: Suspected 07/23/2024 07/23/2024 documented as of this encounter Care Teams Payroll Manager Relationship Specialty Start Date End Date Anil Escoto MD PCP - General 08/06/16 documented as of this encounter
--- OUTSIDE RECORDS SUMMARY | 2024-07-23 16:38 | XMS_ITS | Continuity of Care Document ---
Author Organization [facility] Address [address] [facility] [address] [place] [address] Phone Care Team Providers Care Outdoor Adventure Instructor Name Role Phone Tone Mayer Unavailable Unavailable Procedures Procedure Date Eye Exam & Treatment Refraction Advance Directives Directive Yes / No Effective Date File Name No Information Encounters Encounter Description Practice Location Reason(s) For Visit Diagnoses Date Provider Providers Copied on Encounter Formerly [facility], [address], [place], [place], [id number], tel:[phone] [facility] No Information [address] [facility] [address], [place], [address], [place]. tel:[phone] Family History Family Member Type Diagnosis Age At Onset No Information Payers Payer name Insurance type Covered constitution party ID Authoriza tion(s) [employer] Plan CI [id number] Social History Type Description Quantity Date Captured Comments Sex Female Smoking Status No Information Chief Complaint And Reason For Visit No Information Reason For Referral Reason For Referral No Information History Of Present Illness Encounter Date Complaint History Of Prese nt Illness No Information Functional Status Date Functional Assessmen t No Information Instructions Date Instruction Additional Infor mation No Information Assessments Type Assessment Date No Information Patient Care Teams Name Effective Dates (start - stop) Status Members No Information
--- OUTSIDE RECORDS SUMMARY | 2024-07-23 16:38 | XMS_ITS | Clinical Summary ---
Author Organization [facility] Administrative Offices Address [address] [place] [id number] Care Team Providers Care Immigration Consultant Name Role Phone Anil Escoto MD Primary Care Provider [phone] Allergies Active Allergy Reactions Criticality Noted Date Comments Baclofen Other (See Comments) 09/29/2009 Acid reflux Bupropion Palpitations,Other (See Comments) Low 03/30/2011 Buspirone Anxiety Low 09/29/2009 Cefuroxime Axetil Nausea and Vomiting,Dizziness Low 09/29/2009 Duloxetine Other (See Comments),Dizziness Low 09/29/2009 Escitalopram Other (See Comments) 09/29/2009 Tremors and insomnia Hydrocodone Nausea and Vomiting,Palpitatio ns,Dizziness,Halluc ination Low 09/29/2009 Hydrocodone-Acetaminophe n Unknown 09/24/2009 Meloxicam Nausea and Vomiting,Headache,H allucination Low 01/07/2017 Modafinil Anxiety Low 09/29/2009 Nortriptyline Other (See Comments) 09/29/2009 could not function , acid reflux Pregabalin Other (See Comments) 09/29/2009 Lowers blood platelets Propoxyphene N-Acetaminophen Nausea and Vomiting,Headache Low 03/30/2011 Rabeprazole Other (See Comments) 09/29/2009 Made acid reflux worse Tetracycline Unknown 09/24/2009 Bad migraines Topiramate Anxiety,Palpitation s Low 09/29/2009 Tramadol Nausea and Vomiting,Other (See Comments),Headache Low 09/29/2009 Venlafaxine Anxiety Low 09/29/2009 Medications esomeprazole (NEXIUM) 40 mg Oral CpDR Active zolmitriptan (ZOMIG) 2.5 mg Oral tablet Active gabapentin (NEURONTIN) 600 mg tablet 07/19/2014 Active diazepam (VALIUM) 2 mg tablet 07/22/2014 Active COPAXONE 40 mg/mL Syringe 09/13/2014 Active tiZANidine (ZANAFLEX) 2 mg Tablet 08/29/2014 Active ergocalciferol (VITAMIN D2) 50,000 unit capsuleIndication s:Diffuse cystic mastopathy, unspecified laterality TK 1 C PO Q WEEK 2 05/11/2016 Active ibuprofen (MOTRIN) 600 mg tablet Take 600 mg by mouth. 03/16/2019 Active Active Problems Patient Care Coordination No te Formatting of this note migh t be different from the original. Primary Care: Anil Escoto MD Referring Provider: Anil Escoto MD [address] [place] [address] Other: andrade Koehler Problem Noted Date Diagnosed Date Factor 5 Leiden mutation, heterozygous 5 Diffuse cystic mastopathy 09/29/2009 MS (multiple sclerosis) Acid reflux Migraine Overview (06/03/2010): Updating IMO/ICD9 Code and Description Family History Medical History Relation Name Comments Other Father Factor 5 / Lupu s anticoagulate Cancer Maternal Grandmother Heart Disease Mother 09/2017 Heart Disease Paternal Grandfather Heart Disease Paternal Grandmother Breast Cancer Neg Hx Ovarian Cancer Neg Hx Relation Name Status Comments Father Alive Maternal Grandmother Mother Alive Paternal Grandfather Paternal Grandmother Social History Tobacco Use Types Packs/Day Years Used Date Smoking Tobacco: Never Smokeless Tobacco: Never Tobacco Cessation:Counseling Given: No Alcohol Use Standard Drinks/Week Comments Yes 0 (1 standard drink = 0.6 oz pur e alcohol) rarely Comments No Sex and Gender Information Value Date Recorded Sex Assigned at Not on file Legal Sex Female 5:39 AM BUSINESS MANAGEMENT ANALYST Gender Identity Not on file Sexual Orientation Not on file Occupation Industry Job Start Date Job End Date Not on file Not on file Not on file Not on file Last Filed Vital Signs Vital Sign Reading Time Taken Comments Blood Pressure 100/68 06/22/2019 11:03 AM BUSINESS MANAGEMENT ANALYST Pulse 63 07/15/2017 10:05 AM BUSINESS MANAGEMENT ANALYST Temperature - - Respiratory Rate - - Oxygen Saturation - - Inhaled Oxygen Concentration - - Weight 84.9 kg (187 lb 3.2 oz) 06/22/2019 11:03 AM BUSINESS MANAGEMENT ANALYST Height 160 cm (5' 3 ) 06/22/2019 11:03 AM BUSINESS MANAGEMENT ANALYST Body Mass Index 33.16 06/22/2019 11:03 AM BUSINESS MANAGEMENT ANALYST Plan of Treatment Health Maintenance Due Date Last Done Comments DTAP/TDAP/TD VACCINES (1 - Tdap) 1984 HEPATITIS B VACCINES (1 of 3 - 19+ 3-dose series) 1984 CERVICAL CANCER SCREENING 09/03/1995 COLORECTAL SCREENING 2010 Colorectal Cancer Screening 2010 FIT-DNA Q 3 years 2010 FIT/FOBT Q 1 year 2010 Flex Sig/CT Colonography Q 5 years 2010 ZOSTER VACCINE (1 of 2) 09/03/2015 BREAST CANCER SCREENING 06/22/2020 06/22/19 20, 06/16/2018, 01/07/2017, Additional history exists INFLUENZA VACCINE (#1) 2023 Procedures Procedure Name Priority Date/Time Associated Diagnosis Comments MAMMO 3D MARQUIS DIAGNOSTIC BILAT W OR WO CAD Routine 06/22/2019 9:52 AM BUSINESS MANAGEMENT ANALYST Fibrocystic breast disease (FCBD), unspecified laterality from Last 3 Months or Most Recently Relevant to Health Maintenance Results * MAMMO DIAG BILAT 3D MARQUIS W OR WO CAD (06/22/2019 9:52 AM BUSINESS MANAGEMENT ANALYST) Anatomical Region Laterality Modality Breast Bilateral Mammography 06/22/2019 9:52 AM BUSINESS MANAGEMENT ANALYST Impressions 06/22/2019 12:23 PM BUSINESS MANAGEMENT ANALYST IMPRESSION: 1. No concerning dominant abnormality identified OVERALL FINAL ASSESSMENT: BI-RADS CATEGORY 2: Benign findings RECOMMENDATIONS: 1. Recommend annual mammography with tomosynthesis 2. Recommend annual screening breast ultrasound Narrative 06/22/2019 12:23 PM BUSINESS MANAGEMENT ANALYST BILATERAL DIGITAL DIGITAL DIAGNOSTIC MAMMOGRAM WITH CAD AND COMPLETE BILATERAL BREAST ULTRASOUND DATE: 06/22/2019 9:52 AM DICTATION LOCATION: [facility] INDICATION: Yearly exam, history of benign breast disease TECHNIQUE: Diagnostic digital mammograms of both breasts were performed on a digital system. CAD was utilized. In addition, a complete ultrasound of both breasts was performed. COMPARISON: Comparison made to multiple prior studies dating back to November 2015 BREAST COMPOSITION: Scattered fibroglandular densities FINDINGS: MAMMOGRAM: No concerning dominant masses, microcalcifications or areas of architectural distortion identified. ULTRASOUND: Ultrasound of both breasts was performed. There are no concerning dominant sonographic abnormalities in either breast. Incidental note made of small cysts within both breasts. There are no pathologically enlarged nodes identified. The technologist initially focused on an area of apparent shadowing at the 12:00 position which on real-time examination represents normal fibroglandular tissue. Procedure Note James Garcia MD - 06/22/2019 BILATERAL DIGITAL DIGITAL DIAGNOSTIC MAMMOGRAM WITH CAD AND COMPLETE BILATERAL BREAST ULTRASOUND DATE: 06/22/2019 9:52 AM DICTATION LOCATION: [facility] INDICATION: Yearly exam, history of benign breast disease TECHNIQUE: Diagnostic digital mammograms of both breasts were performed on a digital system. CAD was utilized. In addition, a complete ultrasound of both breasts was performed. COMPARISON: Comparison made to multiple prior studies dating back to November 2015 BREAST COMPOSITION: Scattered fibroglandular densities FINDINGS: MAMMOGRAM: No concerning dominant masses, microcalcifications or areas of architectural distortion identified. ULTRASOUND: Ultrasound of both breasts was performed. There are no concerning dominant sonographic abnormalities in either breast. Incidental note made of small cysts within both breasts. There are no pathologically enlarged nodes identified. The technologist initially focused on an area of apparent shadowing at the 12:00 position which on real-time examination represents normal fibroglandular tissue. IMPRESSION: 1. No concerning dominant abnormality identified OVERALL FINAL ASSESSMENT: BI-RADS CATEGORY 2: Benign findings RECOMMENDATIONS: 1. Recommend annual mammography with tomosynthesis 2. Recommend annual screening breast ultrasound us Ludmila Howe MD MAMMO ORDERABLES Final Resul t from Last 3 Months or Most Recently Relevant to Health Maintenance Insurance [facility] [id number] [facility] Advance Directives For more information, please contact: [phone] Documents on File Type Date Recorded Patient Treasury Specialist Expl anation Advance Directive POA 09/28/2011 1:17 PM A dvance Directive POA Advance Directive Living Will 09/28/2011 Care Teams Immigration Consultant Relationship Specialty Start Date End Date Anil Escoto MD [address] [place] [address] PCP - General Family Practice 03/19/11
--- OUTSIDE RECORDS SUMMARY | 2024-07-23 16:38 | XMS_ITS | Continuity of Care Document ---
Author Organization [facility] Address [address] [facility] [address] [place] [address] Phone Care Team Providers Care Die Repairer Trimmer Dies Name Role Phone Tone Mayer Unavailable Unavailable Procedures Procedure Date Eye Exam & Treatment Refraction Advance Directives Directive Yes / No Effective Date File Name No Information Encounters Encounter Description Practice Location Reason(s) For Visit Diagnoses Date Provider Providers Copied on Encounter [facility], [address], [place], [place], [id number], tel:[phone] [facility] No Information [address] [facility] [address], [place], [address], [place]. tel:[phone] Family History Family Member Type Diagnosis Age At Onset No Information Payers Payer name Insurance type Covered democrat ID Authoriza tion(s) [employer] Vision Plan CI [id number] Social History Type Description Quantity Date Captured [...]
--- OUTSIDE RECORDS SUMMARY | 2024-07-23 16:38 | XMS_ITS | Referral Summary ---
Author Organization [facility] Address [address] [place] [address] Care Team Providers Care Ada Accommodation Consultant Name Role Phone Anil Escoto MD Primary Care Provider [phone] Ludmila Howe MD Unavailable [phone] Daiana Vail MD Unavailable [phone] [facility],non-owned Affiliates and Associated Physician Practices is amultiple site organization consisting of ambulatory clinics and hospital sitesin [place], [place], [place] and [place]. This disclosure is being madepursuant to the Care Everywhere program and may not contain all information available regarding this patient. Last updated 18.[facility] Allergies Active Allergy Reactions Criticality Noted Date [...] Anil Escoto MD [address] [place] [address] Referring Provider: [place] [address] [facility] patient reestablish care 01/12/2022 No known active problems Social History Tobacco [...] Comments Blood Pressure 116/48 03/30/2024 10:10 AM ENTERTAINMENT CENTRE MANAGER Pulse 66 03/30/2024 10:10 AM ENTERTAINMENT CENTRE MANAGER Temperature 36.8 C (98.2 F) 03/30/2024 10:10 AM ENTERTAINMENT CENTRE MANAGER Respiratory Rate - - Oxygen Saturation - - Inhaled Oxygen Concentration - - Weight 81.1 kg (178 lb 12.8 oz) 10:10 AM ENTERTAINMENT CENTRE MANAGER Height 158.8 cm (5' 2.5 ) 03/30/2024 10 :10 AM ENTERTAINMENT CENTRE MANAGER Body Mass Index 32.18 03/30/2024 10:10 AM ENTERTAINMENT CENTRE MANAGER Plan of Treatment Upcoming Encounters Date Type Department Care Team (Late st Contact Info) Description 09/26/2024 1:[address] [facility] Imaging Services - Ultrasound [address] [place] [address] [address] [place] [address] 04/02/2025 11:00 AM ENTERTAINMENT CENTRE MANAGER Appointment [facility] Breast Care [address] [place] [address] [address] [place] [address] 04/02/2025 11:30 AM ENTERTAINMENT CENTRE MANAGER Office Visit [facility] Medical Group - Surgery [address] [place] [address], [address] [place] [phone] Ludmila Howe MD [address] [place] [address] [address] [place] [address] Procedures Procedure Name Priority Date/Time Associated Diagnosis Comments MAMMO BILAT SCREENING W MARQUIS Routine 03/30/2024 9:22 AM ENTERTAINMENT CENTRE MANAGER Screening mammogram for breast cancer from Last 3 Months or Most Recently Relevant to Health Maintenance Results * MAMMO BILAT SCREENING W MARQUIS (03/30/2024 9:22 AM ENTERTAINMENT CENTRE MANAGER) Anatomical Region Laterality Modality Breast Bilateral Mammography 03/30/2024 9:5 8 AM ENTERTAINMENT CENTRE MANAGER Impressions 03/30/2024 9:59 AM ENTERTAINMENT CENTRE MANAGER IMPRESSION: Annual screening mammography is recommended. OVERALL FINAL ASSESSMENT: BI-RADS Category 1: Negative. > Interpreting Provider: Cara Arroyo MD on 03/30/2024 9:59 AM Narrative 03/30/2024 9:59 AM ENTERTAINMENT CENTRE MANAGER EXAMINATION: BILATERAL DIGITAL SCREENING MAMMOGRAM AND BILATERAL [...] Recently Relevant to Health Maintenance Care Teams Ada Accommodation Consultant Relationship Specialty Start Date End Date Anil Escoto MD [address] [place] [address] PCP - General Family Medicine 01/01/22 Ludmila Howe MD [address] [place] [address] [place] [phone] Surgeon Surgical Oncology 01/01/22 Daiana Vail MD [address] [address] Obstetrics and Gynecology 01/01/22
== END 2024-07-23 14:47 | disposition short-term general hospital (02) ==
PROVIDERS: Emergency Provider Nurse Practitioner; PCP Family Medicine
DX: R10.9 Unspecified abdominal pain (principal); M54.50 Low back pain, unspecified; K21.9 Gastro-esophageal reflux disease without esophagitis; G35 Multiple sclerosis
CPT/HCPCS: 81003; 99212; G0463